=== PATIENT | female | born 1935 | race Two or more races ===

== ENCOUNTER → 2018-10-31 | Outpatient (CLI) | payer MEDICARE, BC ==
[2018-10-31 15:58] LABS: HCT 43.2 % (34.0-46.0); HGB 13.9 gm/dL (11.4-16.0); MCH 29.9 pg (25.0-35.0); MCHC 32.2 g/dL (31.0-37.0); MCV 92.8 fL (80.0-100.0); Mean Platelet Volume 6.9; Platelet Count 332 k/uL (150-450); RBC 4.65 m/uL (3.80-5.40); RDW 14.1 % (11.5-15.5); WBC 5.8 k/uL (3.8-10.6)
[2018-10-31 16:02] LABS: INR 0.9 (<1.2); Partial Thromboplastin Time 23.6 sec (22.0-30.0); Prothrombin Time 9.7 sec (9.0-12.0)
[2018-10-31 16:05] LABS: Albumin 3.9 g/dL (3.5-5.0); Calcium 9.6 mg/dL (8.4-10.2); Potassium 4.1 mmol/L (3.5-5.1); Total Bilirubin 0.7 mg/dL (0.2-1.3); Total Protein 6.9 g/dL (6.3-8.2)
[2018-10-31 16:07] LABS: Appearance,Urine Cloudy (Clear); Bacteria,Urine Many /hpf; Bilirubin,Urine Negative (Negative); Blood,Urine Negative (Negative); Color,Urine Yellow; Glucose,Urine (UA) Negative (Negative); Ketones,Urine Negative (Negative); Leukocyte Esterase,Urine Large (Negative); Mucus,Urine Rare /hpf; Nitrite,Urine Positive (Negative); PH, Urine 5.5 (5.0-8.0); Protein,Urine Negative (Negative); RBC,Urine 3 /hpf (0-5); Squamous Epithelial Cell,Urine 1 /hpf (0-4); Urobilinogen,Urine <2.0 mg/dL (<2.0); WBC,Urine 85 /hpf (0-5)
== END | disposition home or self-care (01) ==
LOC: LABPAT 14:01
PROVIDERS: ATTEND Orthopaedic Surgery
DX: Z01.812 Encounter for preprocedural laboratory examination (principal); Z79.01 Long term (current) use of anticoagulants
CPT/HCPCS: 80053; 81001; 85027; 85610; 85730; 87070

== ENCOUNTER 2018-11-06 05:37 | Inpatient (IN) | payer MEDICARE, BC ==
[2018-10-31 10:26] VITALS: BMI 27.0
[~2018-11-06 05:37] MED LIST: ACETAMINOPHEN TAB 500 MG TAB PO ONE; MELOXICAM 7.5 MG TAB PO ONE; TRANEXAMIC ACID 1,000 MG in SODIUM CHLORIDE 0.9% 100 ML IVPB ONE
[2018-11-06] MEDS ORDERED: LIDOCAINE 1% 20 ML VIAL (10MG/ML) FOR IV START INTRADERMA PRN (05:40)
[2018-11-06] MEDS ORDERED: HYDROmorphone 0.5 MG/0.5 ML SYRINGE IVP PRN ×4 (05:40→06:52)
[2018-11-06] MEDS ORDERED: ONDANSETRON 4 MG/2 ML VIAL IVP ONE (05:40)
[2018-11-06] MEDS ORDERED: ROPIVACAINE 246.25 MG, EPINEPHrine 0.5 MG, KETOROLAC 30 MG, cloNIDine HCL/PF 80 MCG, WA... MISCELLANE ONE ×5 (06:01)
[2018-11-06] MEDS ORDERED: DEXAMETHASONE SOD PHOSPHATE 10 MG/ML 1 ML VIAL IV ONE (06:30)
[2018-11-06] MEDS: LACTATED RINGERS 1,000 ML IV SCH (06:30)
[2018-11-06] MEDS ORDERED: HYDROcodone/APAP 5-325MG 1 EACH TAB PO PRN ×2 (06:52)
[2018-11-06] MEDS ORDERED: NALOXONE 0.4 MG/ML 1 ML VIAL IV PRN (06:52)
[2018-11-06] MEDS ORDERED: hydrOXYzine PAMOATE 25 MG CAP PO PRN (06:52)
[2018-11-06] MEDS ORDERED: DIAZEPAM 5 MG TAB PO PRN (06:52)
[2018-11-06] MEDS ORDERED: ONDANSETRON 4 MG/2 ML VIAL IVP PRN (06:52)
[2018-11-06] MEDS ORDERED: MAGNESIUM HYDROXIDE 2,400 MG/10 ML CUP PO PRN (06:52)
[2018-11-06] MEDS ORDERED: SODIUM CHLORIDE 0.9% 100 ML BAG ONE (06:54)
[2018-11-06] MEDS ORDERED: SODIUM CHLORIDE 0.9% IRRIG 1,000 ML BTL IRRIGATION ONE (06:54)
[2018-11-06] MEDS ORDERED: TRANEXAMIC ACID 1,000 MG/10 ML VIAL ONE (06:54)
[2018-11-06] MEDS ORDERED: diphenhydrAMINE 50 MG/ML 1 ML VIAL ONE (06:54)
[2018-11-06] MEDS ORDERED: HEPARIN SODIUM,PORCINE 10,000 UNIT/ML 1 ML VIAL ONE (06:54)
[2018-11-06] MEDS ORDERED: MIDAZOLAM 2 MG/2 ML VIAL ONE (06:54)
[2018-11-06] MEDS ORDERED: ceFAZolin 3,000 MG in SODIUM CHLORIDE 0.9% IRRIGATIO 3,000 ML IRRIGATION ONE (06:59)
--- NOTE | 2018-11-06 08:33 | P.OP ---
Date of Procedure: 11/06/18 Preoperative Diagnosis: Severe osteoarthritis right hip Postoperative Diagnosis: Severe osteoarthritis right hip Procedure(s) Performed: Right total hip arthroplasty with a direct anterior approach Implants: Palmer and nephew Polarstem size 2 standard Palmer & Nephew R3, 3 hole acetabular shell, 50 mm Palmer & Nephew reflection 6.5 mm cancellus screw, 20 mm 2 Palmer & Nephew R3, XLPE 20 acetabular liner Palmer & Nephew Oxinium femoral head 32 m, +0 All components were press-fit. The articulation is Oxinium on polyethylene. Anesthesia: spinal Surgeon: Prasanth Juarez Sea Kayaking Guide #1: Idalia Courtney Estimated Blood Loss (ml): 200 (68 mL returned with Cell Saver) Pathology: other (Femoral head) Condition: stable Disposition: PACU Indications for Procedure: After failure of conservative treatment we discussed the surgical and nonsurgical treatment options at length. Patient wishes to proceed with a total hip arthroplasty with a direct anterior approach. Complications specific to this procedure were discussed at length, including but not limited to infection, leg length discrepancy, dislocation, and nerve injury. Patient is aware of all these complications and informed consent was obtained Operative Findings: The operative findings are consistent with severe osteoarthritis of the right hip Description of Procedure: Patient was seen and evaluated in the preoperative area, consent was reviewed, and the surgical site was marked with a skin marker. Patient was then brought to the operating room and given prophylactic antibiotics intravenously. 1 g of Tranexamic acid was also given. A spinal anesthetic was administered by the anesthesia department. The patient was then placed on the Sarah Ann table with the bony prominences well-padded. The hip area was then prepped and draped in usual sterile fashion. A universal timeout was then performed, which confirmed the patient's name, surgical site, ALLERGIES, and procedure being performed. Next the incision site was located at 1 cm distal and 1 cm lateral to the anterior superior iliac spine. The skin and subcutaneous tissues were sharply incised. Incision was carefully dissected down to the fascia overlying the tensor fascia brooklyn muscle. This fascia was then incised in line with the incision. Next, using blunt finger dissection, the tensor fascia bro[place] muscle was dissected off its investing fascia. The muscle was then carefully retracted laterally with a cobra retractor over the lateral neck of the femur. Next, the circumflex vessels were identified and cauterized using the AquaMantis device. The anterior hip capsule was then exposed. The capsule was then opened and an inverted T fashion. Cobra retractors were then placed intracapsularly. The proximal femur was then visualized. The femoral neck was then osteotomized appropriate level above the lesser trochanter. Small amount of traction was placed with the Sarah Ann table. A small wedge of bone was then removed from the remaining femoral head. Next, using a corkscrew femoral head was easily removed from the acetabulum. On gross visual inspection, the femoral head had complete loss of articular cartilage in mu ltiple periarticular osteophytes. Attention was then turned to the acetabulum. the acetabulum was exposed and any remaining labrum was excised. Sequential reaming of the acetabulum was performed using fluoroscopic guidance. When the appropriate size was reached, a trial was then placed. The position and fit of the trial was checked with fluoroscopy. The trial was then removed. Then, using fluoroscopic guidance, the final implant was impacted at 20 of anteversion and 40 of abduction, and fully seated in the acetabulum. 2 screws were then placed in the acetabulum. Again fluoroscopy was used to check position of the screws. Next, the liner was then impacted, with a 20 elevated liner located in the anterior superior quadrant. Component locking was confirmed. Attention was then directed to the femur. With the aid of the Sarah Ann table, the femur was externally rotated to approximately 130, extended, and abducted under the opposite leg. A side hook was then placed under the proximal femur, and the side hook elevator was used to elevate the proximal femur. Retractors were then placed. A capsular release was performed, as well as a release of the conjoined tendon, which afforded excellent visualization of the proximal femur. Next, a box osteotome was used to lateralize the proximal femur. A retail sales merchandiser development was then used to locate the femoral canal. Sequential broaching was then performed with appropriate size which afforded excellent fixation in the proximal femur. A trial was then placed with appropriate head and neck, and the hip was gently reduced with the aid of the Sarah Ann table. Fluoroscopy was then used to check position of the components, as well as to ensure equal leg lengths. The hip was then gently dislocated and the trials were then removed. Final implants were then impacted and the hip was again reduced. Final fluoroscopic x-rays confirmed that the components were in anatomic position, as well as equal leg lengths. The hip was also taken through range of motion, and found to be stable. The hip was then copiously irrigated with antibiotic solution with pulsatile lavage. The hip was then irrigated with Irrisept solution. The soft tissues were then injected with a ropivacaine solution, which consisted of 246.25 mg of ropivacaine, 0.5 mg of epinephrine, 30 mg of Toradol, 80 g of clonidine, and 48.45 mL of sterile water, for a total of 100 mL of fluid injected. A second dose of 1 g of Tranexamic acid was also given. the fascia was then closed with 2-0 strata fix suture. The subcutaneous tissue was closed with 3-0 Vicryl. The subcuticular tissue was closed with 3-0 strata fix suture. The skin was then closed with Dermabond glue and a sterile silver dressing. The patient was then transferred to the recovery room in stable co ndition. The behavioral health assistant SEEMA Nguyen was required due to the complexity of surgery, and the need for skilled cashier assistant for positioning, draping, exposure, retraction, and closure of the wound.
--- NOTE | 2018-11-06 08:39 | XR ---
EXAMINATION TYPE: XR Hip Limited RT, FL guidance operating room DATE OF EXAM: 11/06/2018 CLINICAL HISTORY: Right hip arthroplasty. Fluoroscopic documentation. TECHNIQUE: Fluoroscopy. COMPARISON: None. FINDINGS: Fluoroscopic guidance was provided during procedure performed by Dr. Juarez. A total of 55 seconds of fluoroscopic time was utilized during the procedure and 2 spot images was acquired dur ing a right hip arthroplasty. IMPRESSION: As Above.
--- NOTE | 2018-11-06 08:58 | XR ---
EXAMINATION TYPE: XR Hip Limited RT DATE OF EXAM: 11/06/2018 CLINICAL HISTORY: Right hip pain and osteoarthritis. TECHNIQUE: Single AP portable view of right hip is obtained immediately postoperatively. COMPARISON: None. FINDINGS: Metallic hardware from right hip arthroplasty is seen and appears satisfactory in alignment and position. There is evidence of recent surgery with subcutaneous gas and soft tissue swelling no pauline laterally. IMPRESSION: Metallic hardware from right hip arthroplasty is satisfactory in position.
[2018-11-06] MEDS: SODIUM CHLORIDE 0.9% 1,000 ML IV SCH ×2 (16:30→22:24)
[2018-11-06] MEDS ORDERED: ACETAMINOPHEN TAB 500 MG TAB PO PRN (16:46)
--- NOTE | 2018-11-06 17:52 | P.CONS ---
History of Present Illness - Reason for Consult Consult date: 11/06/18 Right hip pain Requesting physician: Prasanth Juarez - Chief Complaint hip pain - History of Present Illness Patient is an 83-year-old female past medical history of vertigo, dyslipidemia, Sinusitis, skin cancer, and osteoarthritis who presented for elective right direct anterior total hip arthroplasty. She underwent procedure on 11/06 without any immediate postoperative complications. Patient seen and examined at bedside. She is not having any pain postoperatively. She complains that her leg was numb and she was having difficulty ambulating afterwards. She denies any chest pain, shortness breath, nausea, or vomiting. She reports that she has been struggling with low blood pressures and dizziness recently. She has been seen by both ophthalmology and neurology. She has undergone an MRI as well as imaging of her carotids. She sometimes has dizziness with blurry vision and when she moves her head but no other complaints. She has been struggling with sinusitis most of the summer. She had her eyedrops change with seems to help some, but she still has some sinus congestion. She denies any other complaints currently. Review of Systems Pertinent positives and negatives as discussed in HPI, a complete review of systems was performed and all other systems are negative. Past Medical History Past Medical History: Cancer, GERD/Reflux, Osteoarthritis (OA) Additional Past Medical History / Comment(s): SKIN CANCER , high cholesterol not treated due to statin intolerance, overactive bladder, sinusitis History of Any Multi-Drug Resistant Organisms: None Reported Past Surgical History: Bladder Surgery, Cholecystectomy, Hysterectomy, Joint Replacement Additional Past Surgical History / Comment(s): BLADDER SUSPENSION , 2- LEFT BREAST BIOPSY, COLONOSCOPY, SKIN LESIONS- RIGHT UPPER ARM,UPPER BACK LESION, LEFT TOTAL HIP Past Anesthesia/Blood Transfusion Reactions: Motion Sickness Smoking Status: Former smoker - Past Family History Mother Family Medical History: Cancer Medications and Allergies Home Medications Medication Instructions Recorded Confirmed Type Dorzolamide 2% [Trusopt 2%] 1 drops BOTH EYES BID 10/31/18 11/06/18 History Oxybutynin Chloride [Oxybutynin 10 mg PO DAILY 10/31/18 11/06/18 History Chloride ER] diphenhydrAMINE HCL 25 mg PO HS 10/31/18 11/06/18 History Cetirizine HCl [Zyrtec] 10 mg PO DAILY 11/06/18 11/06/18 History Allergies Allergy/AdvReac Type Severity Reaction Status Date / Time No Known Allergies Allergy Verified 11/06/18 13:12 Physical Exam Osteopathic Statement: *. No significant issues noted on an osteopathic structural exam other than those noted in the History and Physical/Consult. Vitals: Vital Signs Temp Pulse Pulse Pulse Resp BP BP 11/06/18 16:00 71 16 11/06/18 13:06 98.3 F 71 16 11/06/18 12:15 73 18 112/54 11/06/18 11:45 71 16 110/55 11/06/18 11:15 64 16 100/53 11/06/18 10:45 65 16 105/56 11/06/18 10:15 63 16 110/58 11/06/18 10:00 64 16 115/54 11/06/18 09:45 63 16 119/67 11/06/18 09:30 66 16 119/62 11/06/18 09:15 66 16 127/56 11/06/18 09:00 62 16 114/66 11/06/18 08:45 64 16 101/62 11/06/18 08:36 97.7 F 68 12 117/46 11/06/18 06:30 97.2 F L 73 16 126/60 BP Pulse Ox 11/06/18 16:00 11/06/18 13:06 99/61 99 11/06/18 12:15 98 11/06/18 11:45 98 11/06/18 11:15 99 11/06/18 10:45 97 11/06/18 10:15 97 11/06/18 10:00 98 11/06/18 09:45 98 11/06/18 09:30 100 11/06/18 09:15 100 11/06/18 09:00 100 11/06/18 08:45 100 11/06/18 08:36 99 11/06/18 06:30 100 Intake and Output 11/06/18 11/06/18 11/06/18 06:59 14:59 22:59 Intake Total 551 550 Output Total 200 Balance 551 350 Intake: IV 551 550 Output: Estimated Blood Loss 200 Other: Voiding Method Bedside Commode Weight 59.874 kg General: non toxic, no distress, appears younger than stated age, normal weight Derm: no unusual rashes/lesions no unusual ecchymoses, warm, dry Head: atraumatic, normocephalic, symmetric Eyes: EOMI, no lid lag, anicteric sclera, pupils equal round reactive to light ENT: Nose and ears atraumatic, no thrush, no pharyngeal erythema Neck: No thyromegaly, no cervical lymphadenopathy, trachea midline, supple Mouth: no lip lesion, mucus membranes moist Cardiovascular: S1S2 reg, no murmur, positive posterior tibial pulse bilateral, no edema, capillary refill less than 2 seconds Lungs: CTA bilateral, no rhonchi, no rales , no accessory muscle use Abdominal: soft, nontender to palpation, no guarding, no appreciable organomegaly, normal bowel sounds Ext: no gross muscle atrophy, muscle strength 5 out of 5 in upper extremities grossly, no contractures, Neuro: CN II-XI grossly intact, light touch intact all 4 extremities, finger to nose within normal limits, Psych: Alert, oriented, appropriate affect Assessment and Plan Assessment: Patient is an 83-year-old female status post a right direct anterior hip arthroplasty Postoperative pain -Patient does not want to take any narcotic medication secondary to her history of being off balance. We discussed that I will add Tylenol thousand milligrams every 6 hours as needed for pain. If her pain is increased and encouraged her to take the narcotic medications and call the nurse when she gets up so that she does not fall. Patient is in agreement. -PT/OT -DVT prophylaxis per orthopedic surgery Sinusitis -Continue Zyrtec Insomnia -Continue Benadryl Overactive bladder -Resume oxybutynin DVT prophylaxis: ASA Discussed with: Patient, nursing Anticipated discharge: 1-[address]: home A total of 45 minutes was spent on the care of this complex patient more than 50% of the time was spent in counseling and care coordination. Thank you for allowing us to participate in the care of this patient. Do not hesitate to contact us with questions. Someone can be reached from the [facility] hospitalist group at all hours of the day at [phone].
[2018-11-06] MEDS ORDERED: SENNOSIDES-DOCUSATE SODIUM 1 EACH TAB PO SCH (21:00)
[2018-11-06] MEDS ORDERED: diphenhydrAMINE 25 MG CAP PO SCH (21:00)
[2018-11-06] MEDS: ASPIRIN 325 MG TAB PO SCH (21:23)
[2018-11-06] MEDS: DORZOLAMIDE HCL 2% DROPS 10 ML BTL BOTH EYES SCH (21:24)
[2018-11-07] MEDS: LACTATED RINGERS 1,000 ML IV SCH (05:00)
[2018-11-07 07:03] LABS: Basophils # (A) 0.1 k/uL (0-0.2); Basophils % (A) 1 %; Eosinophils # (A) 0.1 k/uL (0-0.7); Eosinophils % (A) 1 %; HCT 32.5 % (34.0-46.0); Lymphocytes # (A) 1.5 k/uL (1.0-4.8); Lymphocytes % (A) 17 %; MCH 30.9 pg (25.0-35.0); MCHC 33.2 g/dL (31.0-37.0); Monocytes # (A) 0.7 k/uL (0-1.0); Monocytes % (A) 8 %; Neutrophils # (A) 6.5 k/uL (1.3-7.7); Neutrophils % (A) 72 %; Platelet Count 247 k/uL (150-450); RBC 3.49 m/uL (3.80-5.40); RDW 14.5 % (11.5-15.5); WBC 8.9 k/uL (3.8-10.6)
[2018-11-07] MEDS: ASPIRIN 325 MG TAB PO SCH (07:25)
[2018-11-07] MEDS: DORZOLAMIDE HCL 2% DROPS 10 ML BTL BOTH EYES SCH (07:27)
[2018-11-07 07:42] LABS: HGB 10.8 gm/dL (11.4-16.0)
[2018-11-07 08:12] VITALS: BP 96/61; PULSE 74; RESP 16; TEMP 98.6
[2018-11-07] MEDS ORDERED: MELOXICAM 7.5 MG TAB PO SCH (09:00)
[2018-11-07] MEDS ORDERED: OXYBUTYNIN 10 MG TAB.ER.24 PO SCH (09:00)
[2018-11-07] MEDS ORDERED: LORATADINE 10 MG TAB PO SCH (09:00)
--- NOTE | 2018-11-07 09:25 | P.DS ---
Providers Date of admission: 11/06/18 05:37 Expected date of discharge: 11/07/18 Attending physician: Prasanth Juarez Consults: 11/06/18 06:52 Consult Physician Routine Consulting Provider: Erma Santana Consult Reason/Comments: medical management Do you want consulting provider notified?: Yes Primary care physician: Errol Reinoso - Discharge Diagnosis(es) (1) Osteoarthritis of right hip Current Visit: Yes Status: Acute (2) S/P total hip arthroplasty Current Visit: Yes Status: Acute Hospital Course: This is a 83-year-old female with known history of degenerative arthritis of the right hip. The patient presents for evaluation. After discussion and consideration patient elects to proceed with total hip arthroplasty. The patient is seen preoperatively by Dr. Juarez and medically cleared for surgery by their primary care physician. Patient is admitted to [facility] on 11/06/2018 for total hip arthroplasty. The procedures performed without complication or sequelae. The p atient is doing well postoperatively. Labs and vital signs are stable on day of discharge. On day of discharge patient's hip incision is healing well. There is minimal erythema. There is no drainage noted at this time. There is minimal soft tissue swelling to the hip and thigh. Patient has full foot and ankle motion without difficulty or pain. Calf is soft and nontender to palpation. Neuro vascular status to the right lower extremity is intact. Patient is discharged home in good condition. Opioid start talking form is reviewed and signed at patient bedside. Please see med rec for accurate list of home medications. Plan - Discharge Summary Discharge Rx Participant: No New Discharge Prescriptions: New Aspirin 325 mg PO BID #60 tab HYDROcodone/APAP 5-325MG [[place] 5-325] 1 - 2 tab PO Q6HR PRN #45 tab PRN Reason: Pain Sennosides [Senokot] 1 tab PO BID #60 tablet No Action Dorzolamide 2% [Trusopt 2%] 1 drops BOTH EYES BID Oxybutynin Chloride [Oxybutynin Chloride ER] 10 mg PO DAILY diphenhydrAMINE HCL 25 mg PO HS Cetirizine HCl [Zyrtec] 10 mg PO DAILY Discharge Medication List Dorzolamide 2% [Trusopt 2%] 1 drops BOTH EYES BID 10/31/18 [History] Oxybutynin Chloride [Oxybutynin Chloride ER] 10 mg PO DAILY 10/31/18 [History] diphenhydrAMINE HCL 25 mg PO HS 10/31/18 [History] Cetirizine HCl [Zyrtec] 10 mg PO DAILY 11/06/18 [History] Aspirin 325 mg PO BID #60 tab 11/07/18 [Rx] HYDROcodone/APAP 5-325MG [[place] 5-325] 1 - 2 tab PO Q6HR PRN #45 tab 11/07/18 [Rx] Sennosides [Senokot] 1 tab PO BID #60 tablet 11/07/18 [Rx] Follow up Appointment(s)/Referral(s): Errol Reinoso DO [Primary Care Provider] - 1 Week Prasanth Juarez DO [Doctor of Osteopathic Medicine] - 11/19/18 1:20 pm Activity/Diet/Wound Care/Special Instructions: Weightbearing as tolerated with walker. Leave dressing intact. Dressing may be removed by home care nurse or by patient in 10 days. May shower with dressing on. Recommend use of compression stockings daily for at least 2 weeks during the day to help prevent swelling and blood clots. May remove at night before sleeping. Please follow-up with [facility] in 2 weeks and call with any questions or concerns, . Discharge Disposition: HOME WITH HOME HEALTH SERVICES
--- NOTE | 2018-11-07 16:30 | P.PN ---
Subjective Progress Note Date: 11/07/18 Principal diagnosis: hip pain Patient is an 83-year-old female past medical history of vertigo, dyslipidemia, Sinusitis, skin cancer, and osteoarthritis who presented for elective right direct anterior total hip arthroplasty. She underwent procedure on 11/06 without any immediate postoperative complications. Seen and examined at bedside. No chest pain, shortness breath, nausea, or vomiting. Has her chronic dizziness which is unchanged. We had a long discussion she does not want to take PPI despite needing to take aspirin twice daily for DVT prophylaxis. We discussed the importance of not stopping her aspirin until it is okay to do so with orthopedics, she is in agreement and will take [id number] Zantac or Prilosec as needed for heartburn. Objective - Vital Signs Vital signs: Vital Signs Temp 98.6 F 11/07/18 07:00 Pulse 74 11/07/18 08:00 Resp 16 11/07/18 08:00 BP 96/61 11/07/18 07:00 Pulse Ox 98 11/07/18 07:00 Intake & Output 11/06/18 11/07/18 11/07/18 18:59 06:59 18:59 Intake Total 550 280 Output Total 200 Balance 350 280 Intake: IV 550 Intake, IV Titration 130 Amount Sodium Chloride 0.9% 1, 130 000 ml @ 65 mls/hr IV . [id number] [facility] Rx#:[id number] Oral 150 Output: Estimated Blood Loss 200 Other: Voiding Method Bedside Commode Bedside Commode Bedside Commode # Voids 1 - Exam General: non toxic, no distress, appears at stated age Derm: warm, dry Head: atraumatic, normocephalic, symmetric Eyes: EOMI, no lid lag, anicteric sclera Mouth: no lip lesion, mucus membranes moist Cardiovascular: S1S2 reg, no murmur, positive posterior tibial pulse bilateral, Lungs: CTA bilateral, no rhonchi, no rales , no accessory muscle use Abdominal: soft, nontender to palpation, no guarding, no appreciable organomegaly - Labs CBC & Chem 7: 11/07/18 05:55 Labs: Abnormal Lab Results - Last 24 Hours (Table) 11/07/18 Range/Units 05:55 RBC 3.49 L (3.80-5.40) m/uL Hgb 10.8 L D (11.4-16.0) gm/dL Hct 32.5 L (34.0-46.0) % Assessment and Plan Assessment: Patient is an 83-year-old female status post a right direct anterior hip arthroplasty Postoperative pain -Tylenol -PT/OT -DVT prophylaxis per orthopedic surgery Sinusitis -Continue Zyrtec Insomnia -Continue Benadryl Overactive bladder -Resume oxybutynin Medically stable for discharge. DVT prophylaxis: ASA Discussed with: Patient, nursing Anticipated discharge: 1-[address]: home A total of 25minutes was spent on the care of this complex patient more than 50% of the time was spent in counseling and care coordination. Thank you for allowing us to participate in the care of this patient. Do not hesitate to contact us with questions. Someone can be reached from the [facility] hospitalist group at all hours of the day at [phone].
== END 2018-11-07 13:57 | disposition home health service (06) | DRG 470 ==
LOC: 2ORMAIN 05:37 → 4SSUR 12:24
PROVIDERS: ADMIT Orthopaedic Surgery; ATTEND Orthopaedic Surgery
PROC: 30233N0 Transfusion of Autologous Red Blood Cells into Peripheral Vein, Percutaneous Approach (ICD-10-PCS; 2018-11-06)
PROC: 0SR906A Replacement of Right Hip Joint with Oxidized Zirconium on Polyethylene Synthetic Substitute, Uncemented, Open Approach (ICD-10-PCS; principal; 2018-11-06 07:00)
DX: M16.11 Unilateral primary osteoarthritis, right hip (principal); E78.00 Pure hypercholesterolemia, unspecified; E78.5 Hyperlipidemia, unspecified; G47.00 Insomnia, unspecified; K21.9 Gastro-esophageal reflux disease without esophagitis; N32.81 Overactive bladder; H81.10 Benign paroxysmal vertigo, unspecified ear; M79.7 Fibromyalgia; K57.30 Diverticulosis of large intestine without perforation or abscess without bleeding; M51.17 Intervertebral disc disorders with radiculopathy, lumbosacral region; E07.9 Disorder of thyroid, unspecified; R26.9 Unspecified abnormalities of gait and mobility; J32.9 Chronic sinusitis, unspecified; Z85.828 Personal history of other malignant neoplasm of skin; Z87.891 Personal history of nicotine dependence; Z90.710 Acquired absence of both cervix and uterus; Z90.49 Acquired absence of other specified parts of digestive tract; Z86.010 Personal history of colon polyps; Z96.642 Presence of left artificial hip joint; Z87.440 Personal history of urinary (tract) infections; Z79.899 Other long term (current) drug therapy; Z82.49 Family history of ischemic heart disease and other diseases of the circulatory system; Z83.3 Family history of diabetes mellitus
CPT/HCPCS: 73501; 85025; 86850; 86891; 86900; 86901; 88300

== ENCOUNTER 2022-10-24 11:35 | Inpatient (IN) | payer MEDICARE, BC ==
--- NOTE | 2022-10-24 12:35 | ED ---
General Adult HPI - General Chief complaint: Dizziness Stated complaint: dizziness Time Seen by Provider: 10/24/22 12:05 Source: patient, family, EMS, RN notes reviewed Mode of arrival: EMS Limitations: no limitations - History of Present Illness Initial comments: Patient is a pleasant 87-year-old female presenting to the emergency department with speech problems. Onset of symptoms was over an hour prior to arrival and have resolved. Patient has had 2 similar episodes since June. Patient did have some associated lightheadedness. Patient has had lightheadedness since 2014 and that has been somewhat recurrent. Patient has been evaluated for ligh theadedness multiple times including MRI and CTA, last 2 years ago at [facility]. Patient states she feels a little bit off balance with the speech problems. No new weakness. Patient is chronic leg weakness and does use a walker. Patient denies any headache or confusion. - Related Data Home Medications Medication Instructions Recorded Confirmed Dorzolamide 2% [Trusopt 2%] 1 drops BOTH EYES BID 10/31/18 11/06/18 Oxybutynin Chloride [oxyBUTYnin 10 mg PO DAILY 10/31/18 11/06/18 chloride ER] diphenhydrAMINE HCL 25 mg PO HS 10/31/18 11/06/18 Cetirizine HCl [Zyrtec] 10 mg PO DAILY 11/06/18 11/06/18 Previous Rx's Medication Instructions Recorded Aspirin 325 mg PO BID #60 tab 11/07/18 HYDROcodone/APAP 5-325MG [[place] 1 - 2 tab PO Q6HR PRN #45 tab 11/07/18 5-325] Sennosides [Senokot] 1 tab PO BID #60 tablet 11/07/18 Allergies Allergy/AdvReac Type Severity Reaction Status Date / Time No Known Allergies Allergy Verified 11/06/18 13:12 Review of Systems ROS Statement: Those systems with pertinent positive or pertinent negative responses have been documented in the HPI. ROS Other: All systems not noted in ROS Statement are negative. Constitutional: Denies: fever Eyes: Denies: eye pain ENT: Denies: ear pain Respiratory: Denies: cough Cardiovascular: Denies: chest pain Endocrine: Denies: fatigue Gastrointestinal: Denies: abdominal pain Genitourinary: Denies: dysuria Skin: Denies: rash Neurological: Reports: as per HPI. Denies: headache Past Medical History Past Medical History: Cancer, GERD/Reflux, Osteoarthritis (OA) Additional Past Medical History / Comment(s): SKIN CANCER , high cholesterol not treated due to statin intolerance, overactive bladder, sinusitis History of Any Multi-Drug Resistant Organisms: None Reported Past Surgical History: Bladder Surgery, Cholecystectomy, Hysterectomy, Joint Replacement Additional Past Surgical History / Comment(s): BLADDER SUSPENSION , 2- LEFT BREAST BIOPSY, COLONOSCOPY, SKIN LESIONS- RIGHT UPPER ARM,UPPER BACK LESION, LEFT TOTAL HIP Past Anesthesia/Blood Transfusion Reactions: Motion Sickness Past Psychological History: No Psychological Hx Reported Smoking Status: Former smoker Past Alcohol Use History: None Reported Past Drug Use History: None Reported - Past Family History Mother Family Medical History: Cancer General Exam Limitations: no limitations General appearance: alert, in no apparent distress Head exam: Present: normocephalic Eye exam: Present: normal appearance, PERRL, EOMI ENT exam: Present: normal oropharynx Neck exam: Present: normal inspection. Absent: tenderness, meningismus Respiratory exam: Present: normal lung sounds bilaterally Cardiovascular Exam: Present: regular rate, normal rhythm, normal heart sounds GI/Abdominal exam: Present: soft. Absent: tenderness Extremities exam: Present: normal inspection Neurological exam: Present: alert, oriented X3, CN II-XII intact Expanded Neurological exam: Present: protecting the airway Patient oriented to: Present: person, place, time Speech: Present: fluid speech Cranial nerves: EOM's Intact: Normal, Facial Sensation: Normal Sensory exam: Upper Extremity Light Touch: Normal, Lower Extremity Light Touch: Normal Motor strength exam: RUE: 5, LUE: 5, RLE: 3, LLE: 3 Eye Response: (4) open spontaneously Motor Response: (6) obeys commands Verbal Response: (5) oriented Psychiatric exam: Present: normal affect, normal mood Skin exam: Present: normal color Course Vital Signs 10/24/22 10/24/22 11:40 13:28 Temperature 97.7 F Pulse Rate 59 L Respiratory 18 18 Rate Blood Pressure 140/63 129/66 O2 Sat by Pulse 97 97 Oximetry EKG Findings - EKG Results: EKG: interpreted by ERMD (Left axis. Low QRS voltage.), sinus rhythm, normal ST/T Medical Decision Making - Medical Decision Making Was pt. sent in by a medical professional or institution (Dr., PA, SOLAR APPLICATIONS DEVELOPMENT ENGINEER, urgent care, hospital, or residential...) When possible be specific @ -Patient was sent from nursing facility Did you speak to anyone other than the patient for history (EMS, parent, family, police, friend...)? What history was obtained from this source @ -Daughter is present and helps provide majority of history is patient is a poor historian. Did you review nursing and triage notes (agree or disagree)? Why? @ -I reviewed and agree with nursing and triage notes Were old charts reviewed (outside hosp., previous admission, EMS record, old EKG, old radiological studies, urgent care reports/EKG's, residential records)? Report findings @ -No old charts were reviewed Differential Diagnosis (chest pain, altered mental status, abdominal pain women, abdominal pain men, vaginal bleeding, weakness, fever, dyspnea, syncope, headache, dizziness, GI bleed, back pain, seizure, CVA, palpatations, mental health, musculoskeletal)? Differential Dizziness: Benign paroxysmal positional Vertigo, Menieres disease, otitis media, acoustic neuroma, vertebrobasilar insufficiency, cerebellar stroke, encephalitis, hypovolemic, arrhythmia, coronary artery syndrome, anemia, this is not meant to be an all-inclusive list EKG interpreted by me (3pts min.). @ -As above X-rays interpreted by me (1pt min.). @ -Chest x-ray shows no acute process CT interpreted by me (1pt min.). @ -CT brain does not show large hemorrhage or mass. Chronic changes. U/S interpreted by me (1pt. min.). @ -None done What testing was considered but not performed or refused? (CT, X-rays, U/S, labs)? Why? @ -None What meds were considered but not given or refused? Why? @ -None Did you discuss the management of the patient with other professionals (emre henson i.e. SEEMA Strange, SOLAR APPLICATIONS DEVELOPMENT ENGINEER, lab, RT, psych nurse, social sciences professor, apple sorter, teacher, workers' compensation hearings officer, director case management)? Give summary @ -Case was discussed with Dr. Haynes with [facility] hospitalist will admit covering hospital call Was smoking cessation discussed for >3mins.? @ -No Was critical care preformed (if so, how long)? @ -No Were there social determinants of health that impacted care today? How? (Homelessness, low income, unemployed, alcoholism, drug addiction, transportation, low edu. Level, literacy, decrease access to med. care, fci, rehab)? @ -No Was there de-escalation of care discussed even if they declined (Discuss DNR or withdrawal of care, Hospice)? DNR status @ -No What co-morbidities impacted this encounter? (DM, HTN, Smoking, COPD, CAD, Cancer, CVA, ARF, Chemo, Hep., AIDS, mental health diagnosis, sleep apnea, morbid obesity)? @ -None Was patient admitted / discharged? Hospital course, mention meds given and route, prescriptions, significant lab abnormalities, going to OR and other pertinent info. @ -Patient reevaluated and symptom free at this time. There is concern for TIA. Patient will be admitted with neurology consult. Admission orders written. Undiagnosed new problem with uncertain prognosis? @ -No Drug Therapy requiring intensive monitoring for toxicity (Heparin, Nitro, Insulin, Cardizem)? @ -No Were any procedures done? @ -No Diagnosis/symptom? @ -TIA Acute, or Chronic, or Acute on Chronic? @ -Acute Uncomplicated (without systemic symptoms) or Complicated (systemic symptoms)? @ -default Side effects of treatment? @ -No Exacerbation, Progression, or Severe Exacerbation? @ -No Poses a threat to life or bodily function? How? (Chest pain, USA, CA, pneumonia, PE, COPD, DKA, ARF, appy, cholecystitis, CVA, Diverticulitis, Homicidal, Suicidal, threat to staff... and all critical care pts) @ -No - Lab Data Result diagrams: 10/24/22 12:36 10/24/22 12:36 Lab Results 10/24/22 10/24/22 10/24/22 Range/Units 12:36 12:36 12:36 WBC 6.0 (3.8-10.6) k/uL RBC 4.47 (3.80-5.40) m/uL Hgb 13.8 (11.4-16.0) gm/dL Hct 42.3 (34.0-46.0) % MCV 94.8 (80.0-100.0) fL MCH 31.0 (25.0-35.0) pg MCHC 32.7 (31.0-37.0) g/dL RDW 13.9 (11.5-15.5) % Plt Count 450 (150-450) k/uL MPV 8.1 Neutrophils % 48 % Lymphocytes % 35 % Monocytes % 13 % Eosinophils % 2 % Basophils % 0 % Neutrophils # 2.9 (1.3-7.7) k/uL Lymphocytes # 2.1 (1.0-4.8) k/uL Monocytes # 0.8 (0-1.0) k/uL Eosinophils # 0.1 (0-0.7) k/uL Basophils # 0.0 (0-0.2) k/uL PT 9.7 (9.0-12.0) sec INR 0.9 (<1.2) APTT 21.5 L (22.0-30.0) sec Sodium 136 L (137-145) mmol/L Potassium 4.9 (3.5-5.1) mmol/L Chloride 105 (98-107) mmol/L Carbon Dioxide 25 (22-30) mmol/L Anion Gap 6 mmol/L BUN 25 H (7-17) mg/dL Creatinine 0.76 (0.52-1.04) mg/dL Est GFR (CKD-EPI)AfAm 81 (>60 ml/min/1.73 sqM) Est GFR (CKD-EPI)NonAf 70 (>60 ml/min/1.73 sqM) Glucose 79 (74-99) mg/dL Calcium 8.9 (8.4-10.2) mg/dL Total Bilirubin 1.2 (0.2-1.3) mg/dL AST 31 (14-36) U/L ALT 18 (4-34) U/L Alkaline Phosphatase 169 H (38-126) U/L Creatine Kinase 36 (30-135) U/L Total Protein 6.8 (6.3-8.2) g/dL Albumin 3.5 (3.5-5.0) g/dL Disposition Clinical Impression: TIA (transient ischemic attack) Disposition: ADMITTED IP TO THIS HOSP Is patient prescribed a controlled substance at d/c from ED?: No Referrals: Gwendolyn Byrd [Primary Care Provider] - 1-2 days Time of Disposition: 14:03
[2022-10-24 12:50] LABS: Basophils % (A) 0 %; Eosinophils # (A) 0.1 k/uL (0-0.7); Eosinophils % (A) 2 %; HCT 42.3 % (34.0-46.0); HGB 13.8 gm/dL (11.4-16.0); Lymphocytes # (A) 2.1 k/uL (1.0-4.8); Lymphocytes % (A) 35 %; MCHC 32.7 g/dL (31.0-37.0); MCV 94.8 fL (80.0-100.0); Mean Platelet Volume 8.1; Monocytes # (A) 0.8 k/uL (0-1.0); Monocytes % (A) 13 %; Neutrophils # (A) 2.9 k/uL (1.3-7.7); Neutrophils % (A) 48 %; Platelet Count 450 k/uL (150-450); RBC 4.47 m/uL (3.80-5.40); RDW 13.9 % (11.5-15.5)
[2022-10-24 13:08] LABS: ALT 18 U/L (4-34); African American GFR (CKD) 81 (>60 ml/min/1.73 sqM); Anion Gap 6 mmol/L; Blood Urea Nitrogen 25 mg/dL (7-17); Calcium 8.9 mg/dL (8.4-10.2); Carbon Dioxide 25 mmol/L (22-30); Chloride 105 mmol/L (98-107); Glucose 79 mg/dL (74-99); Non-African American GFR(CKD) 70 (>60 ml/min/1.73 sqM); Sodium 136 mmol/L (137-145); Total Bilirubin 1.2 mg/dL (0.2-1.3)
--- NOTE | 2022-10-24 13:08 | CT ---
EXAMINATION TYPE: CT brain wo con CT DLP: 1024.4 mGycm, Automated exposure control for dose reduction was used. DATE OF EXAM: 10/24/2022 1:01 PM COMPARISON: None. CLINICAL INDICATION:Female, 87 years old with history of Neuro deficit, acute, stroke suspected, Neur o deficit, acute, stroke suspected TECHNIQUE: Brain: Axial CT images of the brain were obtained with coronal and sagittal reformats created and rev iewed. Contrast used: None. Oral contrast used: None. FINDINGS: Brain: Extra-axial spaces: No abnormal extra-axial fluid collections. Ventricular system: Dilatation in proportion to cerebral atrophy. Cerebral parenchyma: Cerebral atrophy. No acute intraparenchymal hemorrhage or mass effect. The martinez -white junction is well differentiated. Scattered hypoattenuating areas are seen within the white mat ter. Cerebellum: Unremarkable. Mass effect: No evidence of midline shift. Intracranial vasculature: Atherosclerotic calcifications of the intracranial vessels. Soft tissues: Normal. Calvarium/osseous structures: No depressed skull fracture. Paranasal sinuses and mastoid air cells: Mild scattered paranasal sinus disease. Visualized orbits: Bilateral aphakia IMPRESSION: 1. No acute intracranial process. 2. Nonspecific white matter changes, likely secondary to chronic small vessel ischemic disease.
--- NOTE | 2022-10-24 13:09 | XR ---
EXAMINATION TYPE: XR chest 2V DATE OF EXAM: 10/24/2022 1:04 PM COMPARISON: Chest radiographs from 10/24/2022. TECHNIQUE: XR chest 2V Frontal and lateral views of the chest. CLINICAL INDICATION:Female, 87 years old with history of altered mental status; FINDINGS: Lungs/Pleura: Prominent interstitial lung markings are seen scattered throughout the lungs with jose ening of the diaphragm and increased lucency of the lung apices. No evidence of focal consolidation, pneumothorax or pleural effusion. Pulmonary vascularity: Unremarkable. Heart/mediastinum: Cardiomediastinal silhouette is unremarkable. Musculoskeletal: No acute osseous pathology. Remote right clavicle fracture. Suspected chronic injury to the right proximal humerus. IMPRESSION: 1. No acute cardiopulmonary disease process. 2. COPD changes.
[2022-10-24 13:12] LABS: AST 31 U/L (14-36); Albumin 3.5 g/dL (3.5-5.0); Alkaline Phosphatase 169 U/L (38-126); Creatine Kinase 36 U/L (30-135); Potassium 4.9 mmol/L (3.5-5.1); Total Protein 6.8 g/dL (6.3-8.2)
[2022-10-24 13:15] LABS: INR 0.9 (<1.2); Prothrombin Time 9.7 sec (9.0-12.0)
[2022-10-24 13:35] LABS: Partial Thromboplastin Time 21.5 sec (22.0-30.0)
[2022-10-24] MEDS ORDERED: ASPIRIN 325 MG TAB PO STA (14:03)
[2022-10-24] MEDS: SODIUM CHLORIDE 0.9% 1,000 ML IV SCH ×2 (14:27→23:32)
[2022-10-24] MEDS ORDERED: IBUPROFEN 600 MG TAB PO STA (14:47)
--- NOTE | 2022-10-24 14:57 | P.HPIM ---
History of Present Illness H&P Date: 10/24/22 History of present illness; patient is a 87-year-old lady with past medical hist ory significant for back pain who presented to the ER for episodes of slurred speech. Patient states that she has been dealing with these episodes of slurred speech since June. Patient states this these episodes are intermittent. Patient also complains of episodes of pressure behind her eyes and her head feeling full associated with neck pains. Denies any weakness of any extremity. Denies any facial droop. No complaint of any passing out. Patient has been seeing therapy for her right hip pain. This morning patient had episode of slurred speech that made her concerned and wanted to come to the ER Initial lab work done in the ER showed WBC 6, hemoglobin 13.8 platelet count 450, sodium 136, potassium 4.9, BUN 25, creatinine 0.76 CT brain done showed no acute intracranial process Chest x-ray done in the ER showed no acute cardiopulmonary process She admitted to medicine service REVIEW OF SYSTEMS: CONSTITUTIONAL: No fever, no malaise, no fatigue. HEENT: No recent visual problems or hearing problems. Denied any sore throat. CARDIOVASCULAR: No chest pain, orthopnea, PND, no palpitations, no syncope. PULMONARY: No shortness of breath, no cough, no hemoptysis. GASTROINTESTINAL: No diarrhea, no nausea, no vomiting, no abdominal pain. NEUROLOGICAL: As mentioned in HPI HEMATOLOGICAL: Denies any bleeding or petechiae. GENITOURINARY: Denies any burning micturition, frequency, or urgency. MUSCULOSKELETAL/RHEUMATOLOGICAL: Denies any joint pain, swelling, or any muscle pain. ENDOCRINE: Denies any polyuria or polydipsia. The rest of the 14-point review of systems is negative. PHYSICAL EXAMINATION: GENERAL: The patient is alert and oriented x3, not in any acute distress. Well developed, well nourished. HEENT: Pupils are round and equally reacting to light. EOMI. No scleral icterus. No conjunctival pallor. Normocephalic, atraumatic. No pharyngeal erythema. No th yromegaly. CARDIOVASCULAR: S1 and S2 present. No murmurs, rubs, or gallops. PULMONARY: Chest is clear to auscultation, no wheezing or crackles. ABDOMEN: Soft, nontender, nondistended, normoactive bowel sounds. No palpable organomegaly. MUSCULOSKELETAL: No joint swelling or deformity. EXTREMITIES: No cyanosis, clubbing, or pedal edema. NEUROLOGICAL: Gross neurological examination did not reveal any focal deficits. SKIN: No rashes. Assessment and plan Episodes of slurred speech Dizziness Monitor vital signs Monitor CBC Monitor CMP Continue telemetry monitoring Ordered neurochecks Ordered 2-D echo Ordered ultrasound of carotids Will order EEG Consult neurology Labs and medication were reviewed.. Continue same treatment. Continue with symptomatic treatment. Resume home medication. Monitor labs and vitals. DVT and GI prophylaxis. Further recommendations as per clinical course of the patient Dictation was produced using [employer] dictation software. please excuse any grammatical, word or spelling errors. Past Medical History Past Medical History: Cancer, GERD/Reflux, Osteoarthritis (OA) Additional Past Medical History / Comment(s): SKIN CANCER , high cholesterol not treated due to statin intolerance, overactive bladder, sinusitis History of Any Multi-Drug Resistant Organisms: None Reported Past Surgical History: Bladder Surgery, Cholecystectomy, Hysterectomy, Joint Replacement Additional Past Surgical History / Comment(s): BLADDER SUSPENSION , 2- LEFT BREAST BIOPSY, COLONOSCOPY, SKIN LESIONS- RIGHT UPPER ARM,UPPER BACK LESION, LEFT TOTAL HIP Past Anesthesia/Blood Transfusion Reactions: Motion Sickness Past Psychological History: No Psychological Hx Reported Smoking Status: Former smoker Past Alcohol Use History: None Reported Past Drug Use History: None Reported - Past Family History Mother Family Medical History: Cancer Medications and Allergies Home Medications Medication Instructions Recorded Confirmed Type Dorzolamide 2% [Trusopt 2%] 1 drops BOTH EYES BID 10/31/18 11/06/18 History Oxybutynin Chloride [oxyBUTYnin 10 mg PO DAILY 10/31/18 11/06/18 History chloride ER] diphenhydrAMINE HCL 25 mg PO HS 10/31/18 11/06/18 History Cetirizine HCl [Zyrtec] 10 mg PO DAILY 11/06/18 11/06/18 History Aspirin 325 mg PO BID #60 tab 11/07/18 Rx HYDROcodone/APAP 5-325MG [[place] 1 - 2 tab PO Q6HR PRN #45 tab 11/07/18 Rx 5-325] Sennosides [Senokot] 1 tab PO BID #60 tablet 11/07/18 Rx Allergies Allergy/AdvReac Type Severity Reaction Status Date / Time No Known Allergies Allergy Verified 11/06/18 13:12 Physical Exam Vitals: Vital Signs Temp Pulse Resp BP Pulse Ox 10/24/22 14:30 60 18 147/67 97 10/24/22 13:28 59 L 18 129/66 97 10/24/22 11:40 97.7 F 18 140/63 97 Intake and Output 10/23/22 10/24/22 10/24/22 22:59 06:59 14:59 Other: Weight 128 kg Results CBC & Chem 7: 10/24/22 12:36 10/24/22 12:36 Labs: Abnormal Lab Results - Last 24 Hours (Table) 10/24/22 10/24/22 Range/Units 12:36 12:36 APTT 21.5 L (22.0-30.0) sec Sodium 136 L (137-145) mmol/L BUN 25 H (7-17) mg/dL Alkaline Phosphatase 169 H (38-126) U/L
--- NOTE | 2022-10-24 16:19 | US ---
EXAMINATION TYPE: US carotid duplex BILAT DATE OF EXAM: 10/24/2022 COMPARISON: NONE CLINICAL INDICATION: Female, 87 years old with history of Stenosis; TECHNIQUE: Carotid duplex ultrasound examination. Indirect Doppler criteria was utilized. FINDINGS: EXAM MEASUREMENTS: RIGHT: Peak Systolic Velocity (PSV) cm/sec ----- Right CCA: 63.0 ----- Right ICA: 74.4 ----- Right ECA: 45.0 ICA/CCA ratio: 1.2 RIGHT: End Diastole cm/sec ----- Right CCA: 11.0 ----- Right ICA: 24.9 ----- Right ECA: 0.0 LEFT: Peak Systolic Velocity (PSV) cm/sec ----- Left CCA: 51.0 ----- Left ICA: 75.3 ----- Left ECA: 101.0 ICA/CCA ratio: 1.5 LEFT: End Diastole cm/sec ----- Left CCA: 10.1 ----- Left ICA: 19.7 ----- Left ECA: 0.0 VERTEBRALS (direction of flow): Right Vertebral: Antegrade Left Vertebral: Antegrade Rhythm: Normal No significant stenosis IMPRESSION: No ultrasound evidence for hemodynamically significant stenosis of the visualized bilateral carotid a rterial systems. Criteria for Assigning % of Stenosis / Diameter reduction (Estimation based on the indirect measurements of the internal carotid artery velocities (ICA PSV). 1. Normal (no stenosis)=ICA PSV < 125 cm/s: ratio < 2.0: ICA EDV<40 cm/s. 2. Less than 50% stenosis=ICA PSV < 125 cm/s: ratio < 2.0: ICA EDV<40 cm/s. 3. 50 to 69% stenosis=ICA PSV of 125 to 230 cm/s: ration 2.0 ? 4.0: ICA EDV 40-100 cm/s. 4. Greater than 70% stenosis to near occlusion= ICA PSV > 230 cm/s: ratio > 4.0: ICA EDV > 100 cm/s. 5. Near occlusion= ICA PSV velocities may be low or undetectable: variable ratio and ICA EDV. 6. Total occlusion=unable to detect flow.
--- NOTE | 2022-10-24 16:22 | P.CNNES ---
History of Present Illness Consult date: 10/24/22 Requesting physician: Bakari Ellington Reason for Consult: tia History of Present Illness: This is an 87-year-old woman with chronic history of lower back pain as well as history of slurring the speech who presented emergency department because of worsening of her slurred speech. Patient states that she's been having slurring the speech on and off since June. She states that the been having chronic episodes that when she stands up for prolonged period of time she'll have pain episodes to travel from her feet all the way up neck and she'll feel pain in the head behind her eyes mostly and then the she needs to sit down and then when she sits down the episodes resolve. She denies any loss of conscious, urinary incontinence, bowel incontinence. She states that she saw multiple neurologist as a result of these episodes at different cities and had extensive workup and the workup were negative. It seems that the this morning she had episodes slurring the speech that she felt was worse this why she decided to come to the hospital. Denies of any focal weakness, she is having predominantly right hip pain which is chronic. She denies of any passing out stated that earlier. Denies of any seizure-like activity. Some of the workup during this hospital stay consisted of: CBC with differential is unremarkable. Sodium is 136. Glucose is 79. Calcium, LFT's is within normal limits. CT of the head is reported as no acute intracranial process. Nonspecific white matter changes, likely secondary due to chronic small vessel ischemic disease. Review of Systems Review of system: The 12 point system was reviewed and apparent positive and negative per HPI. Past Medical History Past Medical History: Cancer, GERD/Reflux, Osteoarthritis (OA) Additional Past Medical History / Comment(s): SKIN CANCER , high cholesterol not treated due to statin intolerance, overactive bladder, sinusitis History of Any Multi-Drug Resistant Organisms: None Reported Past Surgical History: Bladder Surgery, Cholecystectomy, Hysterectomy, Joint Replacement Additional Past Surgical History / Comment(s): BLADDER SUSPENSION , 2- LEFT BREAST BIOPSY, COLONOSCOPY, SKIN LESIONS- RIGHT UPPER ARM,UPPER BACK LESION, LEFT TOTAL HIP Past Anesthesia/Blood Transfusion Reactions: Motion Sickness Past Psychological History: No Psychological Hx Reported Smoking Status: Former smoker Past Alcohol Use History: None Reported Past Drug Use History: None Reported - Past Family History Mother Family Medical History: Cancer Medications and Allergies Home Medications Medication Instructions Recorded Confirmed Type Ibuprofen [Motrin] 800 mg PO DAILY 10/24/22 10/24/22 History Allergies Allergy/AdvReac Type Severity Reaction Status Date / Time No Known Allergies Allergy Verified 10/24/22 14:59 Physical Examination - Vital Signs Vital Signs: Vital Signs Temp Pulse Resp BP Pulse Ox 10/24/22 14:30 60 18 147/67 97 10/24/22 13:28 59 L 18 129/66 97 10/24/22 11:40 97.7 F 18 140/63 97 Intake and Output 10/24/22 10/24/22 10/24/22 06:59 14:59 22:59 Other: Weight 128 kg GENERAL: The patient is lying in bed and is not in acute distress. NEUROLOGICAL: Higher mental function: The patient is awake, alert, oriented to self, place and time. Patient is following commands. No aphasia and no neglect. Cranial nerves: The pupils are round, equal and reactive to light. Visual wagoner are full to confrontation throughout. Extraocular movement is intact no nystagmus is noted. Facial sensation is normal to touch throughout. The facial strength is normal throughout. Hearing is moderately decreased bilaterally to hand rub. Tongue is midline and moved [id number] without any difficulty. No dysarthria is noted. Shoulder shrug is normal bilaterally. Motor: The strength is limited in assessment lowers (predominately right because of right hip pain). Uppers are 5/5. Lowers are limited predominately right lower because of hip pain. But is able to lifting the lowers above gravity (better o the left but limited on right because of hip pain). Normall tone and bulk. Cerebellum: Normal finger to nose bilaterally. Sensation: Sensation is normal to touch throughout. Reflexes (right/left): 2+ uppers but limited on lowers because deferred because of pain.. Plantars are downgoing bilaterally. Results - Laboratory Findings CBC and BMP: 10/24/22 12:36 10/24/22 12:36 Abnormal Lab Findings: Abnormal Labs 10/24/22 10/24/22 12:36 12:36 APTT 21.5 L Sodium 136 L BUN 25 H Alkaline Phosphatase 169 H Assessment and Plan Assessment: This is an 87-year-old woman who has been having intermittent slurring the speech since June 2022, chronic low back pain, right hip pain who presents because a worsening of her slurred speech. Upon examining the patient she had no slurred speech but the lowers are limited in the assessment especially right lower because of right hip pain and lower back pain. She states that she's been having pain after prolonged standing up that starts in the feet as since all the way up by her neck and behind the eyes and she'll feel of feels the she slurring states she was seen by different the neurologist and had extensive workup which was negative. Intermittent reported dysarthria that's been recurrent since June 2022 and she states this happens when she stands prolonged period time as a result she has been a sense of her legs up the arms and to the neck and head behind the eyes and then the she would have to last at during these episodes as she feels like she feels off and has slurring of the speech. Episodes resolved. She denies any loss of consciousness. Unknown exact etiology. Unsure if they are truly TIA versus ? Seizure versus other central process Chronic lower back and right hip pain History of altered arthritis Plan: I ordered a routine EEG to rule out any underlying seizure discharges. I recommended MRI of the brain but the patient declined and she stated the she cannot lie still for the MRI of the brain right now and she might consider down the line such as outpatient. Patient states that she had extensive workup as an outpatient and was seen by different neurologists and the unknown exact cause. If EEG is negative consider prolonged EEG as an outpatient to capture these episodes. Carotid duplex is ordered is pending as well as 2-D echo and lipid panel is ordered by the ED team is pending In the ED she was started on aspirin 325mg daily. Continue checks On cardiac monitoring PT OT WATER RESOURCE SPECIALIST are consulted We'll defer the rest of the medical management to primary team Upon discharge recommend the patient follow up with a neurologist within 1-2 weeks Plan discussed with the patient and primary attending Thank you for the consultation Time with Patient: Greater than 30
[2022-10-24] MEDS: diphenhydrAMINE 25 MG CAP PO PRN (22:15)
[2022-10-24] MEDS: DOCUSATE 100 MG CAP PO SCH (22:15)
[2022-10-24] MEDS: IBUPROFEN 600 MG TAB PO PRN (22:15)
[2022-10-25 08:56] LABS: Chol/HDL Ratio 3.77 Ratio; LDL Cholesterol,Calculated 121.1 mg/dL (0.0-131.0)
[2022-10-25] MEDS: DOCUSATE 100 MG CAP PO SCH ×2 (09:12→21:44)
[2022-10-25] MEDS: IBUPROFEN 600 MG TAB PO PRN ×3 (09:12→21:44)
[2022-10-25] MEDS: ASPIRIN 325 MG TAB PO SCH (09:12)
[2022-10-25] MEDS: SODIUM CHLORIDE 0.9% 1,000 ML IV SCH ×2 (09:12→21:45)
--- NOTE | 2022-10-25 14:23 | P.PN ---
Subjective Progress Note Date: 10/25/22 patient is a 87-year-old lady with past medical history significant for back pain who presented to the ER for episodes of slurred speech. Patient states that she has been dealing with these episodes of slurred speech since June. Patient states this these episodes are intermittent. Patient also complains of episodes of pressure behind her eyes and her head feeling full associated with neck pains. Denies any weakness of any extremity. Denies any facial droop. No complaint of any passing out. Patient has been seeing therapy for her right hip pain. This morning patient had episode of slurred speech that made her concerned and wanted to come to the ER Initial lab work done in the ER showed WBC 6, hemoglobin 13.8 platelet count 450, sodium 136, potassium 4.9, BUN 25, creatinine 0.76 CT brain done showed no acute intracranial process Chest x-ray done in the ER showed no acute cardiopulmonary process She admitted to medicine service 10/25. Patient seen and examined. Still having episodes of slurred speech. No other sensory or motor deficit REVIEW OF SYSTEMS: CONSTITUTIONAL: No fever, no malaise,. CARDIOVASCULAR: No chest pain, no palpitations, no syncope. PULMONARY: No shortness of breath, no cough, GASTROINTESTINAL: No diarrhea, no nausea, no vomiting, no abdominal pain. NEUROLOGICAL: No headaches, no weakness, PHYSICAL EXAMINATION: GENERAL: The patient is alert and oriented x3, not in any acute distress. Well developed, well nourished. HEENT: Pupils are round and equally reacting to light. EOMI. No scleral icterus. No conjunctival pallor. Normocephalic, atraumatic. No pharyngeal erythema. No thyromegaly. CARDIOVASCULAR: S1 and S2 present. No murmurs, rubs, or gallops. PULMONARY: Chest is clear to auscultation, no wheezing or crackles. ABDOMEN: Soft, nontender, nondistended, normoactive bowel sounds. No palpable organomegaly. MUSCULOSKELETAL: No joint swelling or deformity. EXTREMITIES: No cyanosis, clubbing, or pedal edema. NEUROLOGICAL: Gross neurological examination did not reveal any focal deficits. SKIN: No rashes. Assessment and plan Episodes of slurred speech Dizziness Right hip pain Monitor vital signs Monitor CBC Monitor CMP Continue telemetry monitoring Carotid Dopplers negative for any hemodynamically significant stenosis EEG ordered MRI brain PT and OT consulted Neurology following Labs and medication were reviewed.. Continue same treatment. Continue with symptomatic treatment. Resume home medication. Monitor labs and vitals. DVT and GI prophylaxis. Further recommendations as per clinical course of the patient Dictation was produced using [employer] dictation software. please excuse any grammatical, word or spelling errors. Objective - Vital Signs Vital signs: Vital Signs Temp 98.0 F 10/25/22 07:00 Pulse 91 10/25/22 07:00 Resp 16 10/25/22 07:00 BP 121/76 10/25/22 07:00 Pulse Ox 99 10/25/22 07:00 FiO2 Intake & Output 10/24/22 10/25/22 10/25/22 18:59 06:59 18:59 Intake Total 118 Balance 118 Weight 128 kg 128 kg Intake: Oral 118 Other: Voiding Method Bedside Commode Bedside Commode # Voids 2 1 - Labs CBC & Chem 7: 10/24/22 12:36 10/24/22 12:36 Labs: Abnormal Lab Results - Last 24 Hours (Table) 10/24/22 10/24/22 Range/Units 12:36 12:36 APTT 21.5 L (22.0-30.0) sec Sodium 136 L (137-145) mmol/L BUN 25 H (7-17) mg/dL Alkaline Phosphatase 169 H (38-126) U/L
[2022-10-25] MEDS ORDERED: LORazepam 2 MG/ML INJ IV PRN (17:09)
--- NOTE | 2022-10-25 17:21 | P.PN ---
Subjective Progress Note Date: 10/25/22 The patient is seen at beside an is accompanied with her three daughters. She feels back to baseline. Yesterday in the ED she was in agreement to pursue with MRI then today she did not want to pursue with MRI. Per the daughters, she was seen by two different neurologist in [place] and had extensive work-up and unknown cause. Objective - Vital Signs Vital signs: Vital Signs Temp 98.3 F 10/25/22 14:52 Pulse 75 10/25/22 14:52 Resp 16 10/25/22 14:52 BP 117/75 10/25/22 14:52 Pulse Ox 98 10/25/22 14:52 FiO2 Intake & Output 10/24/22 10/25/22 10/25/22 18:59 06:59 18:59 Intake Total 118 Balance 118 Weight 128 kg 128 kg Intake: Oral 118 Other: Voiding Method Bedside Commode Bedside Commode # Voids 2 2 - Exam GENERAL: The patient is resting in a recliner chair is not in acute distress. NEUROLOGICAL: Higher mental function: The patient is awake, alert, oriented to self, place and time. Patient is following commands. No aphasia and no neglect. Cranial nerves: The pupils are round, equal and reactive to light. Visual wagoner are full to confrontation throughout. Extraocular movement is intact no nystagmus is noted. Facial sensation is normal to touch throughout. The facial strength is normal throughout. Tongue is midline and moved [id number] without any difficulty. No dysarthria is noted. Cerebellum: Normal finger to nose bilaterally. Sensation: Sensation is normal to touch throughout. Some of the workup during this hospital stay consisted of: CBC with differential is unremarkable. Sodium is 136. Glucose is 79. Calcium, LFT's is within normal limits. Lipid panel: TG 118, Cholestrol 197, LDL 121, HDL 52 CT of the head is reported as no acute intracranial process. Nonspecific white matter changes, likely secondary due to chronic small vessel ischemic disease. Carotid duplex: Reported as No ultrasound evidence for hemodynamically significant stenosis of the visualized bilateral carotid arterial systems. - Labs CBC & Chem 7: 10/24/22 12:36 10/24/22 12:36 Assessment and Plan Assessment: This is an 87-year-old woman who has been having intermittent slurring the speech since June 2022, chronic low back pain, right hip pain who presents because a worsening of her slurred speech. Upon examining the patient she had no slurred speech but the lowers are limited in the assessment especially right lower because of right hip pain and lower back pain. She states that she's been having pain after prolonged standing up that starts in the feet as since all the way up by her neck and behind the eyes and she'll feel of feels the she slurring states she was seen by two different neurologist and had extensive workup which was negative. Intermittent reported dysarthria that's been recurrent since June 2022 and she states this happens when she stands prolonged period time as a result she has been a sense of her legs up the arms and to the neck and head behind the eyes and then the she would have to last at during these episodes as she feels like she feels off and has slurring of the speech. Episodes resolved. She denies any loss of consciousness. Unknown exact etiology. Unsure if they are truly TIA versus ? Seizure versus other central process Chronic lower back and right hip pain History of altered arthritis Plan: Pending routine EEG to rule out any underlying seizure discharges. Patient is agreement with pursuing MRI Brain. Will give her Ativan IV0.5mg prior to MRI and if needed can repeat Ativan 0.5mg (for total of 1mg) and give Ibuprofen for hip pain. Patient states that she had extensive workup as an outpatient and was seen by different neurologists and the unknown exact cause. If EEG is negative consider prolonged EEG as an outpatient to capture these episodes. Pending 2D echo. In the ED she was started on aspirin 325mg daily. Continue checks On cardiac monitoring PT OT PROCUREMENT ANALYST are consulted We'll defer the rest of the medical management to primary team Upon discharge recommend the patient follow up with a neurologist within 1-2 weeks Plan discussed with the patient, her three daughters who are at bedside, primary attending and her nurse. All of patient and daughters questions were answered. Will continue to follow Time with Patient: Less than 30
[2022-10-25] MEDS: diphenhydrAMINE 25 MG CAP PO PRN (21:45)
[2022-10-26] MEDS: SODIUM CHLORIDE 0.9% 1,000 ML IV SCH ×2 (05:48→17:34)
--- NOTE | 2022-10-26 07:13 | CA ---
Transthoracic Echo Report Name: Sienna Brown Age: 87 Gender: F : 1935 Exam Date: 10/25/2022 10:11 Exam Location: [facility] Ht (in): 59 Wt (lb): 125 Ordering Physician: Bakari Ellington DO Attending/Referring Phys: Cheese Tester Sol Magana RDCS Procedure CPT: Indications: Thrombus Cardiac Hx: Technical Quality: Good Contrast 1: Total Dose (mL): Contrast 2: Total Dose (mL): MEASUREMENTS (Male / Female) Normal Values 2D ECHO LV Diastolic Diameter PLAX 3.7 cm 4.2 - 5.9 / 3.9 - 5.3 cm LV Systolic Diameter PLAX 2.6 cm IVS Diastolic Thickness 1.1 cm 0.6 - 1.0 / 0.6 - 0.9 cm LVPW Diastolic Thickness 1.1 cm 0.6 - 1.0 / 0.6 - 0.9 cm LV Relative Wall Thickness 0.6 RV Internal Dim ED PLAX 2.9 cm LA Systolic Diameter LX 3.3 cm 3.0 - 4.0 / 2.7 - 3.8 cm LV Diastolic Volume MOD 4C 50.8 cm??? LV Systolic Volume MOD 4C 21.5 cm??? LV Ejection Fraction MOD 4C 57.6 % LV Cardiac Index MOD 4C 1320.9 cm???/min???m??? LV Diastolic Length 4C 7.9 cm LV Systolic Length 4C 6.3 cm LV Diastolic Volume MOD 2C 56.0 cm??? LV Systolic Volume MOD 2C 22.3 cm??? LV Ejection Fraction MOD 2C 60.2 % LV Cardiac Index MOD 2C 1521.7 cm???/min???m??? LV Diastolic Length 2C 6.7 cm LV Systolic Length 2C 5.6 cm LA Volume 34.1 cm??? 18 - 58 / 22 - 52 cm??? M-MODE Aortic Root Diameter MM 2.8 cm MV E Point Septal Separation 0.5 cm AV Cusp Separation MM 2.1 cm DOPPLER AV Peak Velocity 143.9 cm/s AV Peak Gradient 8.3 mmHg MV Area PHT 2.7 cm??? Mitral E Point Velocity 89.6 cm/s Mitral A Point Velocity 119.2 cm/s Mitral E to A Ratio 0.8 MV Deceleration Time 284.0 ms MV E' Velocity 6.1 cm/s Mitral E to MV E' Ratio 14.7 TR Peak Velocity 215.8 cm/s TR Peak Gradient 18.6 mmHg Right Ventricular Systolic Press 23.1 mmHg FINDINGS Left Ventricle Left ventricular ejection fraction is estimated at 55-60 %. Small left ventricular cavity. Mildly increased septal wall thickness. Mildly increased posterior wall thickness. Right Ventricle Normal right ventricular size. Right ventricular systolic pressure within normal limits. Right Atrium Normal right atrial size. Left Atrium Normal left atrial size. Mitral Valve Mitral valve thickened. Mitral annular calcification. Trace mitral regurgitation. Aortic Valve Trileaflet aortic valve. No aortic valve stenosis or regurgitation. Thickened aortic valve without stenosis. Tricuspid Valve Structurally normal tricuspid valve. Mild tricuspid regurgitation. Pulmonic Valve Structurally normal pulmonic valve. No pulmonic regurgitation. Pericardium No pericardial effusion. Aorta Normal size aortic root and proximal ascending aorta. CONCLUSIONS Normal LV systolic function. Mild LVH. No significant valvular abnormalities seen No evidence of pericardial effusion Previewed by: Dr. Lewis Velazquez MD (Electronically Signed) Final Date: 26 October 2022 07:12
[2022-10-26] MEDS: DOCUSATE 100 MG CAP PO SCH ×2 (09:07→20:14)
[2022-10-26] MEDS: ASPIRIN 325 MG TAB PO SCH (09:07)
--- NOTE | 2022-10-26 12:17 | P.PN ---
Subjective Progress Note Date: 10/26/22 patient is a 87-year-old lady with past medical history significant for back pain who presented to the ER for episodes of slurred speech. Patient states that she has been dealing with these episodes of slurred speech since June. Patient states this these episodes are intermittent. Patient also complains of episodes of pressure behind her eyes and her head feeling full associated with neck pains. Denies any weakness of any extremity. Denies any facial droop. No complaint of any passing out. Patient has been seeing therapy for her right hip pain. This morning patient had episode of slurred speech that made her concerned and wanted to come to the ER Initial lab work done in the ER showed WBC 6, hemoglobin 13.8 platelet count 450, sodium 136, potassium 4.9, BUN 25, creatinine 0.76 CT brain done showed no acute intracranial process Chest x-ray done in the ER showed no acute cardiopulmonary process She admitted to medicine service 10/25. Patient seen and examined. Still having episodes of slurred speech. No other sensory or motor deficit 10/26. Patient seen and examined. Still having right hip pain. REVIEW OF SYSTEMS: CONSTITUTIONAL: No fever, no malaise,. CARDIOVASCULAR: No chest pain, no palpitations, no syncope. PULMONARY: No shortness of breath, no cough, GASTROINTESTINAL: No diarrhea, no nausea, no vomiting, no abdominal pain. NEUROLOGICAL: No headaches, no weakness, PHYSICAL EXAMINATION: GENERAL: The patient is alert and oriented x3, not in any acute distress. Well developed, well nourished. HEENT: Pupils are round and equally reacting to light. EOMI. No scleral icterus. No conjunctival pallor. Normocephalic, atraumatic. No pharyngeal erythema. No thyromegaly. CARDIOVASCULAR: S1 and S2 present. No murmurs, rubs, or gallops. PULMONARY: Chest is clear to auscultation, no wheezing or crackles. ABDOMEN: Soft, nontender, nondistended, normoactive bowel sounds. No palpable organomegaly. MUSCULOSKELETAL: No joint swelling or deformity. EXTREMITIES: No cyanosis, clubbing, or pedal edema. NEUROLOGICAL: Gross neurological examination did not reveal any focal deficits. SKIN: No rashes. Assessment and plan Episodes of slurred speech Dizziness Right hip pain Monitor vital signs Monitor CBC Monitor CMP Continue telemetry monitoring Carotid Dopplers negative for any hemodynamically significant stenosis EEG ordered MRI brain ordered PT and OT consulted Neurology following Orthopedic consulted, they ordered x-ray hip and Lumbar spine Labs and medication were reviewed.. Continue same treatment. Continue with symptomatic treatment. Resume home medication. Monitor labs and vitals. DVT and GI prophylaxis. Further recommendations as per clinical course of the patient Dictation was produced using [employer] dictation software. please excuse any grammatical, word or spelling errors. Objective - Vital Signs Vital signs: Vital Signs Temp 98.7 F 10/26/22 07:00 Pulse 79 10/26/22 07:00 Resp 16 10/26/22 07:00 BP 130/75 10/26/22 07:00 Pulse Ox 95 10/26/22 07:00 FiO2 Intake & Output 10/25/22 10/26/22 10/26/22 18:59 06:59 18:59 Intake Total 236 118 Balance 236 118 Intake: Oral 236 118 Other: Voiding Method Bedside Commode # Voids 2 1 - Labs CBC & Chem 7: 10/24/22 12:36 10/24/22 12:36
--- NOTE | 2022-10-26 15:16 | P.PN ---
Subjective Progress Note Date: 10/26/22 The patient is seen at bedside and is accompanied by her two daughters. She feels about the same. She is having right hip pain. Denies of any new neurological issues. Pending MRI Brain. Objective - Vital Signs Vital signs: Vital Signs Temp 98.7 F 10/26/22 07:00 Pulse 79 10/26/22 07:00 Resp 16 10/26/22 07:00 BP 130/75 10/26/22 07:00 Pulse Ox 95 10/26/22 07:00 FiO2 Intake & Output 10/25/22 10/26/22 10/26/22 18:59 06:59 18:59 Intake Total 236 118 Balance 236 118 Intake: Oral 236 118 Other: Voiding Method Bedside Commode # Voids 2 1 - Exam GENERAL: The patient is resting in a recliner chair is not in acute distress. NEUROLOGICAL: Higher mental function: The patient is awake, alert, oriented to self, place and time. Patient is following commands. No aphasia and no neglect. Cranial nerves: The pupils are round, equal and reactive to light. Visual wagoner are full to confrontation throughout. Extraocular movement is intact no nystagmus is noted. Facial sensation is normal to touch throughout. The facial strength is normal throughout. Tongue is midline and moved [id number] without any difficulty. No dysarthria is noted. Cerebellum: Normal finger to nose bilaterally. Sensation: Sensation is normal to touch throughout. Some of the workup during this hospital stay consisted of: CBC with differential is unremarkable. Sodium is 136. Glucose is 79. Calcium, LFT's is within normal limits. Lipid panel: TG 118, Cholestrol 197, LDL 121, HDL 52 CT of the head is reported as no acute intracranial process. Nonspecific white matter changes, likely secondary due to chronic small vessel ischemic disease. Carotid duplex: Reported as No ultrasound evidence for hemodynamically significant stenosis of the visualized bilateral carotid arterial systems. 2D echo: Is reported as normal LV systolic function. Mild LVH. No significant valvular abnormality seen. Routine EEG: Preliminary report is negative for seizures. - Labs CBC & Chem 7: 10/24/22 12:36 10/24/22 12:36 Assessment and Plan Assessment: This is an 87-year-old woman who has been having intermittent slurring the speech since June 2022, chronic low back pain, right hip pain who presents because a worsening of her slurred speech. Upon examining the patient she had no slurred speech but the lowers are limited in the assessment especially right lower because of right hip pain and lower back pain. She states that she's been having pain after prolonged standing up that starts in the feet as since all the way up by her neck and behind the eyes and she'll feel of feels the she slurring states she was seen by two different neurologist and had extensive workup which was negative. Intermittent reported dysarthria that's been recurrent since June 2022 and she states this happens when she stands prolonged period time as a result she has been a sense of her legs up the arms and to the neck and head behind the eyes and then the she would have to last at during these episodes as she feels like she feels off and has slurring of the speech. Episodes resolved. She denies any loss of consciousness. Unknown exact etiology. Unsure if they are truly TIA versus ? Seizure versus other central process. Routine EEG is negative for seizure Chronic lower back and right hip pain History of altered arthritis Plan: Preliminary EEG is negative for seizure. Pending MRI Brain and is scheduled for tomorrow. Will give her Ativan IV0.5mg prior to MRI and if needed can repeat Ativan 0.5mg (for total of 1mg) and give I buprofen for hip pain. Patient states that she had extensive workup as an outpatient and was seen by different neurologists and the unknown exact cause. If EEG is negative consider prolonged EEG as an outpatient to capture these episodes. In the ED she was started on aspirin 325mg daily. Continue checks On cardiac monitoring PT OT CHEMICAL PLANT OPERATOR are consulted We'll defer the rest of the medical management to primary team Upon discharge recommend the patient follow up with a neurologist within 1-2 weeks Plan discussed with the patient, her two daughters who are at bedside, primary attending and her nurse. Will continue to follow Time with Patient: Less than 30
--- NOTE | 2022-10-26 15:33 | XR ---
EXAMINATION TYPE: XR lumbar spine 2 or 3V, XR Hip Complete 2 views RT DATE OF EXAM: 10/26/2022 Comparison: None Clinical History: 87-year-old female right hip pain s/p fall Findings: Lumbar spine: 5 lumbar type vertebral bodies. Cholecystectomy clips. Moderate to large stool burden. 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 Hypertrophic facet arthropathy especially lower lumbar spine with degenerative gr kylee 1 anterolisthesis L4-L5 and L5-S1. Vertebral body heights are preserved. Mild multilevel degenera tive disc disease. Right hip: The right vertebral artery plasty appears well seated. No periprosthetic fracture. Alignment grossly anatomic. Suture anchor inferior right pubic ramus. IMPRESSION: Lumbar spine: 1. Osteopenia. No vertebral compression collapse. Mild multilevel degenerative disc disease. 2. Hypertrophic facet arthropathy especially mid to lower lumbar spine with degenerative grade 1 ante rolisthesis of L4-S1 levels. Right hip: 3. Uncomplicated right hip total arthroplasty.
--- NOTE | 2022-10-26 15:41 | P.CNOR ---
History of Present Illness - [facility] Consult date: 10/26/22 Consult reason: joint pain, other History of present illness: Patient is an 87 year old female seen at bedside today in consultation for right hip pain. She states that she fell on her bottom about 5 weeks ago and has had right buttock. hip and leg pain since. She states she had xrays done elsewhere which were negative. She had a right JOHN done per Dr. Prasanth Juarez in 2019. She has also been treated for her lumbar spine previously including injections per Dr. Montiel. She states she has neuropathy and doesn't have new numbness down her right leg. She has no left sided symptoms. Review of Systems All systems: negative Constitutional: Denies chills, Denies fever Eyes: denies blurred vision, denies pain Ears, nose, mouth and throat: Denies headache, Denies sore throat Cardiovascular: Denies chest pain, Denies shortness of breath Respiratory: Denies cough Gastrointestinal: Denies abdominal pain, Denies diarrhea, Denies nausea, Denies vomiting Genitourinary: Denies dysuria, Denies hematuria Musculoskeletal: Denies myalgias Integumentary: Denies pruritus, Denies rash Neurological: Denies numbness, Denies weakness Psychiatric: Denies anxiety, Denies depression Endocrine: Denies fatigue, Denies weight change Past Medical History Past Medical History: Cancer, GERD/Reflux, Osteoarthritis (OA) Additional Past Medical History / Comment(s): SKIN CANCER , high cholesterol not treated due to statin intolerance, overactive bladder, sinusitis History of Any Multi-Drug Resistant Organisms: None Reported Past Surgical History: Bladder Surgery, Cholecystectomy, Hysterectomy, Joint Replacement Additional Past Surgical History / Comment(s): BLADDER SUSPENSION , 2- LEFT BREAST BIOPSY, COLONOSCOPY, SKIN LESIONS- RIGHT UPPER ARM,UPPER BACK LESION, LEFT TOTAL HIP Past Anesthesia/Blood Transfusion Reactions: Motion Sickness Past Psychological History: No Psychological Hx Reported Smoking Status: Former smoker Past Alcohol Use History: None Reported Additional Past Alcohol Use History / Comment(s): STARTED SMOKING AT AGE 10 QUIT SMOKING AT AGE 50 SMOKED 1/2 PPD Past Drug Use History: None Reported - Past Family History Mother Family Medical History: Cancer Medications and Allergies Home Medications Medication Instructions Recorded Confirmed Type Ibuprofen [Motrin] 800 mg PO DAILY 10/24/22 10/24/22 History Allergies Allergy/AdvReac Type Severity Reaction Status Date / Time No Known Allergies Allergy Verified 10/24/22 14:59 Physical Examination Inspection of the lower extremities shows no deformity of the right lower extremity. There are no wounds, erythema or ecchymoses. The knee is nontender without effusion. She has painless range of motion of the knee, ankle foot and toes. Range of motion of the right hip reproduces pain wth flexion and straight leg raise. Neurovascular status is grossly intact throughout the lower extremity with motor and sensation. Hip strength is limited due to pain. Reflexes are 1+ at KJ and AJ. Calf is soft and nontender. 2+ dorsalis pedis pulse and less than 2 second cap refill is present. Results Xrays of the right hip show components in place with no evidence of loosening or migration. No fracture Xrays of [facility] lumbar spine show multilevel degenerative disc disease with grade 1 spondylolisthesis at L4-5. No acute fracture seen - Labs Labs: H & H 10/24/22 Range/Units 12:36 Hgb 13.8 (11.4-16.0) gm/dL Hct 42.3 (34.0-46.0) % Coagulation 10/24/22 Range/Units 12:36 INR 0.9 (<1.2) Result Diagrams: 10/24/22 12:36 10/24/22 12:36 - Diagnostic results Hip x-ray: image reviewed Lumbar AP/lateral x-ray: image reviewed Assessment and Plan (1) Degeneration of lumbar intervertebral disc Narrative/Plan: There are no plans for immediate surgical intervention. Suspect that majority of her hip and leg symptoms are originating from her lumbar spine. She may benefit from a trial of corticosteroids if okay with primary team. Would also consider PT and pain management. We will follow peripherally. Current Visit: Yes Status: Acute Code(s): M51.36 - OTHER INTERVERTEBRAL DISC DEGENERATION, LUMBAR REGION SNOMED Code(s): 27040534 (2) Spondylolisthesis, lumbar region Current Visit: Yes Status: Acute Code(s): M43.16 - SPONDYLOLISTHESIS, LUMBAR REGION SNOMED Code(s): 571687290354985 (3) Osteoarthritis of right hip Current Visit: No Status: Acute Code(s): M16.11 - UNILATERAL PRIMARY OSTEOARTHRITIS, RIGHT HIP SNOMED Code(s): 479614603506467 (4) S/P total hip arthroplasty Current Visit: No Status: Acute Code(s): Z96.649 - PRESENCE OF UNSPECIFIED ARTIFICIAL HIP JOINT SNOMED Code(s): 367528259726 Time with Patient: Less than 30
[2022-10-26] MEDS: IBUPROFEN 600 MG TAB PO PRN ×2 (16:29→20:15)
[2022-10-26] MEDS: diphenhydrAMINE 25 MG CAP PO PRN (20:14)
[2022-10-26] MEDS: levETIRAcetam 500 MG TAB PO SCH (20:15)
[2022-10-27] MEDS: SODIUM CHLORIDE 0.9% 1,000 ML IV SCH ×3 (03:38→19:54)
[2022-10-27] MEDS ORDERED: LORazepam 2 MG/ML INJ IV PRN (08:17)
[2022-10-27] MEDS: IBUPROFEN 600 MG TAB PO PRN ×2 (08:24→16:54)
--- NOTE | 2022-10-27 09:48 | EEG ---
ELECTROENCEPHALOGRAM REPORT CLINICAL HISTORY: This is an 87-year-old woman with recurrent flaring of the seizure. The video EEG is obtained to evaluate for seizure and discharges. RELEVANT MEDICATIONS: The patient is not on any antiepileptic drugs. EEG TYPE: A routine 21-channel EEG with video using the 10/20 electrode placement system. DESCRIPTION: Wakefulness is obtained. During awake state, the posterior-dominant rhythm consists of [id number]-rt-[id number] voltage of 8.5 Hz activity. There is no physiological stage II sleep architecture. There is no focal slowing. INTERICTAL AND ICTAL: There is moderate voltage of 2.5-3 Hz delta lasting about 2-3 seconds over the left temporal that is semirhythmic. There is sharp and slow waves over the left temporal. No seizure is noted. ACTIVATION PROCEDURE: The patient has posterior driving response at multiple flash frequencies. There is no abnormality during the photic stimulation. Hyperventilation is not performed. CLINICAL INTERPRETATION: This is an abnormal routine EEG. There is delta slowing over the left temporal region which is due to focal cerebral dysfunction. There is left temporal epileptiform discharges that can increase risk for seizures or status epilepticus. No seizure noted during this study. Clinical correlation is recommended. MMODL / IJN: [id number] / NIKKI
[2022-10-27] MEDS: ASPIRIN 325 MG TAB PO SCH (09:52)
[2022-10-27] MEDS: levETIRAcetam 500 MG TAB PO SCH ×2 (09:52→19:54)
[2022-10-27] MEDS: DOCUSATE 100 MG CAP PO SCH ×2 (09:53→19:54)
[2022-10-27] MEDS: methylPREDNISolone 4 MG TAB TAPER PO SCH (10:41)
--- NOTE | 2022-10-27 10:47 | MR ---
EXAMINATION TYPE: MR brain wo/w con DATE OF EXAM: 10/27/2022 9:31 AM CLINICAL INDICATION:Female, 87 years old with history of tia; Neuro deficit, acute stroke suspected. COMPARISON: 10/16/2022 TECHNIQUE: Multi planar, multi sequence imaging was performed through the brain including: T1, T2, In version recovery, susceptibility weighted imaging and gradient echo imaging and Diffusion weighted im aging. The patient was then given intravenous contrast and multi planar, T1 fat-saturation images wer e obtained. IV Contrast: 5.5 cc Gadavist FINDINGS: Cerebral atrophy with proportional dilation of the ventricular system.. Diffusion-weighted imaging sh ows no evidence of restricted diffusion to suggest acute/subacute infarct. Intracranial arterial flow voids are maintained. Midline structures show no abnormality. Scattered foci of high T2 signal inten sity are seen within the periventricular white matter. The susceptibility weighted images do not reve al any evidence for micro-hemorrhage. After administration of gadolinium, no abnormal enhancement is seen. The bone marrow signal is within normal limits. Paranasal sinuses and mastoid air cells: No significant paranasal sinus disease. Visualized orbits: Bilateral aphakia IMPRESSION: 1. No evidence of intracranial mass, acute/subacute infarct, or abnormal enhancement. 2. Nonspecific white matter changes, likely related to small vessel ischemic disease
--- NOTE | 2022-10-27 12:09 | P.PN ---
Subjective Progress Note Date: 10/27/22 patient is a 87-year-old lady with past medical history significant for back pain who presented to the ER for episodes of slurred speech. Patient states that she has been dealing with these episodes of slurred speech since June. Patient states this these episodes are intermittent. Patient also complains of episodes of pressure behind her eyes and her head feeling full associated with neck pains. Denies any weakness of any extremity. Denies any facial droop. No complaint of any passing out. Patient has been seeing therapy for her right hip pain. This morning patient had episode of slurred speech that made her concerned and wanted to come to the ER Initial lab work done in the ER showed WBC 6, hemoglobin 13.8 platelet count 450, sodium 136, potassium 4.9, BUN 25, creatinine 0.76 CT brain done showed no acute intracranial process Chest x-ray done in the ER showed no acute cardiopulmonary process She admitted to medicine service 10/25. Patient seen and examined. Still having episodes of slurred speech. No other sensory or motor deficit 10/26. Patient seen and examined. Still having right hip pain. 10/27. Patient seen and examined. Hip and lumbar spine x-rays reviewed, no evidence of any fractures. MRI brain showed no evidence of intracranial mass, acute/subacute infarct or abnormal enhancement REVIEW OF SYSTEMS: CONSTITUTIONAL: No fever, no malaise,. CARDIOVASCULAR: No chest pain, no palpitations, no syncope. PULMONARY: No shortness of breath, no cough, GASTROINTESTINAL: No diarrhea, no nausea, no vomiting, no abdominal pain. NEUROLOGICAL: No headaches, no weakness, PHYSICAL EXAMINATION: GENERAL: The patient is alert and oriented x3, not in any acute distress. Well developed, well nourished. HEENT: Pupils are round and equally reacting to light. EOMI. No scleral icterus. No conjunctival pallor. Normocephalic, atraumatic. No pharyngeal erythema. No thyromegaly. CARDIOVASCULAR: S1 and S2 present. No murmurs, rubs, or gallops. PULMONARY: Chest is clear to auscultation, no wheezing or crackles. ABDOMEN: Soft, nontender, nondistended, normoactive bowel sounds. No palpable organomegaly. MUSCULOSKELETAL: No joint swelling or deformity. EXTREMITIES: No cyanosis, clubbing, or pedal edema. NEUROLOGICAL: Gross neurological examination did not reveal any focal deficits. SKIN: No rashes. Assessment and plan Episodes of slurred speech Dizziness Right hip pain Monitor vital signs Monitor CBC Monitor CMP Continue telemetry monitoring Carotid Dopplers negative for any hemodynamically significant stenosis EEG negative for any seizure-like activity, neurology recommended extended EEG is scheduled for today. MRI brain negative for any acute intrarenal process PT and OT consulted Neurology following, started on Keppra because of high suspicion of seizure Orthopedic consulted,x-ray hip and Lumbar spine negative for any fractures Labs and medication were reviewed.. Continue same treatment. Continue with symptomatic treatment. Resume home medication. Monitor labs and vitals. DVT and GI prophylaxis. Further recommendations as per clinical course of the patient Dictation was produced using [employer] dictation software. please excuse any grammatical, word or spelling errors. Objective - Vital Signs Vital signs: Vital Signs Temp 97.6 F 10/27/22 07:00 Pulse 64 10/27/22 07:00 Resp 16 10/27/22 07:00 BP 92/52 10/27/22 07:00 Pulse Ox 99 10/27/22 07:00 FiO2 Intake & Output 10/26/22 10/27/22 10/27/22 18:59 06:59 18:59 Intake Total 918 Balance 918 Weight 58.06 kg Intake: Intake, IV Titration 800 Amount Sodium Chloride 0.9% 1, 800 000 ml @ 100 mls/hr IV . Q10H ELLEN Rx#:[id number] Oral 118 Other: # Voids 1 - Labs CBC & Chem 7: 10/24/22 12:36 10/24/22 12:36
--- NOTE | 2022-10-27 13:16 | P.PN ---
Subjective Progress Note Date: 10/27/22 I am following-up seeing the patient and states doing well. Denies of any new neurological issues. Per patient and her daughters it seems she has been having for past 8-9 years pressure sensation that ascends to her head, feels off and she has to close her eye and would last at least 20 minutes. The episodes has become more frequent. Then in June 2022 she started having dysarthria. She denies LOC, urinary or bowel incontinence. She was seen by two different neurologist (Dr. Luna and Aly) and per patient and daughters she had MRI and other work-up but does not recall having EEG. Objective - Vital Signs Vital signs: Vital Signs Temp 97.6 F 10/27/22 07:00 Pulse 64 10/27/22 07:00 Resp 16 10/27/22 07:00 BP 92/52 10/27/22 07:00 Pulse Ox 99 10/27/22 07:00 FiO2 Intake & Output 10/26/22 10/27/22 10/27/22 18:59 06:59 18:59 Intake Total 918 Balance 918 Weight 58.06 kg Intake: Intake, IV Titration 800 Amount Sodium Chloride 0.9% 1, 800 000 ml @ 100 mls/hr IV . Q10H ELLEN Rx#:[id number] Oral 118 Other: # Voids 1 - Labs CBC & Chem 7: 10/24/22 12:36 10/24/22 12:36 Assessment and Plan Assessment: This is an 87-year-old woman who has been having intermittent slurring the speech since June 2022, chronic low back pain, right hip pain who presents because a worsening of her slurred speech. Upon examining the patient she had no slurred speech but the lowers are limited in the assessment especially right lower because of right hip pain and lower back pain. She states that she's been having pain after prolonged standing up that starts in the feet as since all the way up by her neck and behind the eyes and she'll feel of feels the she slurring states she was seen by two different neurologist and had extensive workup which was negative. Episode of pressure sensation that ascends to her head, feeling something is off for past 8-9 years and has to close her eyes for at least 20 minutes and becoming more frequent and then since June 2022 having intermittent recurrent dysarthria: I feel likely newly diagnosis. On EEG has left temporal discharges and delta slowing but no seizure on routine EEG. Chronic lower back and right hip pain History of altered arthritis Plan: I will obtain a 2.5 hour EEG. I started the patient on keppra 500mg bid on 10/26/2022. She was notified of side-effects of medication. MRI Brain w/ and w/o: It is reported as no evidence of intracranial mass, acute/subacute infarct or abnormal enhancement. Nonspecific white matter changes, likely related to small vessel ischemic disease. Consider Epilepsy monitoring unit (EMU) or prolonged EEG if episodes are not ca pture during 2.5hour EEG. In the ED she was started on aspirin 325mg daily. Continue checks On cardiac monitoring PT OT CLINICAL DIETETIC TECHNICIAN are consulted We'll defer the rest of the medical management to primary team Upon discharge recommend the patient follow up with a neurologist within 1-2 weeks Plan discussed with the patient, primary attending and her nurse. Will continue to follow Time with Patient: Less than 30
--- NOTE | 2022-10-27 18:28 | EEG ---
ELECTROENCEPHALOGRAM REPORT ELECTROENCEPHALOGRAM (EEG) REPORT: TECHNIQUE: This is a report from a prolonged 2-1/2-hour inpatient digital video EEG performed using the 10/20 International Electrode Placement System. HISTORY: Slurred speech. CURRENT MEDICATIONS: 1. Aspirin. 2. Benadryl. 3. Colace. 4. Motrin. 5. Keppra. FINDINGS: RECORDING START TIME: 10/27/2022, at 11:51 a.m. RECORDING END TIME: 10/27/2022, at 1504 hours. EVENTS: During this 2-1/2-hour video EEG, no clinical or electrographic seizures were recorded. BACKGROUND: The background activity consisted of 8 to 9 Hz rhythmic waveforms symmetrically distributed throughout both posterior quadrants. ACTIVATION: 1. Hyperventilation: Not performed. 2. Photic stimulation: Symmetric driving seen. SLEEP: Stages I and II sleep noted. ABNORMALITIES: None. IMPRESSION: Normal 2-1/2-hour video EEG. No clinical or electrographic seizures were recorded. No epileptiform activity was present. These findings were called to the consulting neurologist, at 03:51 p.m., on 10/27/2022. MMODL / IJN: [id number] /
[2022-10-27] MEDS: diphenhydrAMINE 25 MG CAP PO PRN (21:51)
[2022-10-28] MEDS: levETIRAcetam 500 MG TAB PO SCH (08:57)
[2022-10-28] MEDS: ASPIRIN 325 MG TAB PO SCH (08:57)
[2022-10-28] MEDS: DOCUSATE 100 MG CAP PO SCH ×2 (08:57→20:54)
[2022-10-28] MEDS: methylPREDNISolone 4 MG TAB TAPER PO SCH (08:57)
[2022-10-28] MEDS: SODIUM CHLORIDE 0.9% 1,000 ML IV SCH ×2 (10:25→20:55)
--- NOTE | 2022-10-28 11:45 | P.PN ---
Subjective Progress Note Date: 10/28/22 I am following-up and she states she had an episode earlier today when she had difficulty getting her words out, had close her eyes. She had 2.5 hour video EEG yesterday and reported as normal. Objective - Vital Signs Vital signs: Vital Signs Temp 98.5 F 10/28/22 08:00 Pulse 67 10/28/22 08:00 Resp 16 10/28/22 08:57 BP 114/71 10/28/22 08:00 Pulse Ox 96 10/28/22 08:54 FiO2 21 10/28/22 08:54 Intake & Output 10/27/22 10/28/22 10/28/22 18:59 06:59 18:59 Intake Total 118 240 Balance 118 240 Weight 58.06 kg Intake: Intake, IV Titration 0 Amount Sodium Chloride 0.9% 1, 0 000 ml @ 100 mls/hr IV . Q10H ELLEN Rx#:[id number] Oral 118 240 Other: Voiding Method Bedside Commode Bedside Commode # Voids 3 1 - Exam GENERAL: The patient is resting in a recliner chair is not in acute distress. NEUROLOGICAL: Higher mental function: The patient is awake, alert, oriented to self, place and time. Patient is following commands. No aphasia and no neglect. Cranial nerves: The pupils are round, equal and reactive to light. Visual wagoner are full to confrontation throughout. Extraocular movement is intact no nystagmus is noted. Facial sensation is normal to touch throughout. The facial strength is normal throughout. Tongue is midline and moved [id number] without any difficulty. No dysarthria is noted. Cerebellum: Normal finger to nose bilaterally. Sensation: Sensation is normal to touch throughout. Some of the workup during this hospital stay consisted of: CBC with differential is unremarkable. Sodium is 136. Glucose is 79. Calcium, LFT's is within normal limits. Lipid panel: TG 118, Cholestrol 197, LDL 121, HDL 52 CT of the head is reported as no acute intracranial process. Nonspecific white matter changes, likely secondary due to chronic small vessel ischemic disease. Carotid duplex: Reported as No ultrasound evidence for hemodynamically significant stenosis of the visualized bilateral carotid arterial systems. 2D echo: Is reported as normal LV systolic function. Mild LVH. No significant valvular abnormality seen. Routine EEG: Preliminary report is negative for seizures. 2.5 hour video eeg on 10/27/2022: Is reported as normal. No clinical or electro graphic seizures were recorded. No epileptiform activity was present. - Labs CBC & Chem 7: 10/24/22 12:36 10/24/22 12:36 Assessment and Plan Assessment: This is an 87-year-old woman who has been having intermittent slurring the speech since June 2022, chronic low back pain, right hip pain who presents because a worsening of her slurred speech. Upon examining the patient she had no slurred speech but the lowers are limited in the assessment especially right lower because of right hip pain and lower back pain. She states that she's been having pain after prolonged standing up that starts in the feet as since all the way up by her neck and behind the eyes and she'll feel of feels the she slurring states she was seen by two different neurologist and had extensive workup which was negative. Recurrent Episodes of pressure sensation that ascends to her head, feeling something is off for past 8-9 years, has generalized weakness and has to close her eyes for at least 20 minutes and becoming more frequent and then since June 2022 having intermittent recurrent dysarthria: I feel likely newly diagnosis seizures. On routine EEG has left temporal discharges and delta slowing but no seizure on routine EEG but on 2.5 hour EEG is reported as normal. Chronic lower back and right hip pain History of altered arthritis Plan: I increased Keppra from 500mg bid to 750mg bid since had another episode earlier today (medication is new and was not on antiepileptic drugs prior to this admission). MRI Brain w/ and w/o: It is reported as no evidence of intracranial mass, acute/subacute infarct or abnormal enhancement. Nonspecific white matter changes, likely related to small vessel ischemic disease. Consider Epilepsy monitoring unit (EMU) or prolonged EEG as outpatient to capt ure those episodes. Continue checks On cardiac monitoring PT OT [employer] are consulted We'll defer the rest of the medical management to primary team Upon discharge recommend the patient follow up with a neurologist within 1-2 weeks (she follows-up with Dr. Dodd). Plan discussed with the patient, primary attending and her nurse. Otherwise no additional neurological work-up. Time with Patient: Less than 30
[2022-10-28] MEDS: IBUPROFEN 600 MG TAB PO PRN ×2 (12:20→20:59)
--- NOTE | 2022-10-28 12:37 | P.PN ---
Subjective Progress Note Date: 10/28/22 patient is a 87-year-old lady with past medical history significant for back pain who presented to the ER for episodes of slurred speech. Patient states that she has been dealing with these episodes of slurred speech since June. Patient states this these episodes are intermittent. Patient also complains of episodes of pressure behind her eyes and her head feeling full associated with neck pains. Denies any weakness of any extremity. Denies any facial droop. No complaint of any passing out. Patient has been seeing therapy for her right hip pain. This morning patient had episode of slurred speech that made her concerned and wanted to come to the ER Initial lab work done in the ER showed WBC 6, hemoglobin 13.8 platelet count 450, sodium 136, potassium 4.9, BUN 25, creatinine 0.76 CT brain done showed no acute intracranial process Chest x-ray done in the ER showed no acute cardiopulmonary process She admitted to medicine service 10/25. Patient seen and examined. Still having episodes of slurred speech. No other sensory or motor deficit 10/26. Patient seen and examined. Still having right hip pain. 10/27. Patient seen and examined. Hip and lumbar spine x-rays reviewed, no evidence of any fractures. MRI brain showed no evidence of intracranial mass, acute/subacute infarct or abnormal enhancement 10/28. Patient seen and examined. Patient had prolonged EEG yesterday which was negative for any seizures. Currently on Keppra per neurology recommendations. Patient had episode this morning of slurred speech, neurology increased the dose to Keppra to 750 milligrams twice daily REVIEW OF SYSTEMS: CONSTITUTIONAL: No fever, no malaise,. CARDIOVASCULAR: No chest pain, no palpitations, no syncope. PULMONARY: No shortness of breath, no cough, GASTROINTESTINAL: No diarrhea, no nausea, no vomiting, no abdominal pain. NEUROLOGICAL: No headaches, no weakness, PHYSICAL EXAMINATION: GENERAL: The patient is alert and oriented x3, not in any acute distress. Well developed, well nourished. HEENT: Pupils are round and equally reacting to light. EOMI. No scleral icterus. No conjunctival pallor. Normocephalic, atraumatic. No pharyngeal erythema. No thyromegaly. CARDIOVASCULAR: S1 and S2 present. No murmurs, rubs, or gallops. PULMONARY: Chest is clear to auscultation, no wheezing or crackles. ABDOMEN: Soft, nontender, nondistended, normoactive bowel sounds. No palpable organomegaly. MUSCULOSKELETAL: No joint swelling or deformity. EXTREMITIES: No cyanosis, clubbing, or pedal edema. NEUROLOGICAL: Gross neurological examination did not reveal any focal deficits. SKIN: No rashes. Assessment and plan Episodes of slurred speech Dizziness Right hip pain Monitor vital signs Monitor CBC Monitor CMP Continue telemetry monitoring Carotid Dopplers negative for any hemodynamically significant stenosis EEG negative for any seizure-like activity, neurology recommended extended EEG is scheduled for today. MRI brain negative for any acute intrarenal process PT and OT consulted Neurology following, started on Keppra because of high suspicion of seizure, does increased to 750 mg twice daily. neurology recommended Epilepsy monitoring unit (EMU) or prolonged EEG as outpatient to capture those episodes. Orthopedic consulted,x-ray hip and Lumbar spine negative for any fractures Labs and medication were reviewed.. Continue same treatment. Continue with symptomatic treatment. Resume home medication. Monitor labs and vitals. DVT and GI prophylaxis. Further recommendations as per clinical course of the patient Dictation was produced using [employer] dictation software. please excuse any grammatical, word or spelling errors. Objective - Vital Signs Vital signs: Vital Signs Temp 98.5 F 10/28/22 08:00 Pulse 67 10/28/22 08:00 Resp 16 10/28/22 08:57 BP 114/71 10/28/22 08:00 Pulse Ox 96 10/28/22 08:54 FiO2 21 10/28/22 08:54 Intake & Output 10/27/22 10/28/22 10/28/22 18:59 06:59 18:59 Intake Total 118 240 Balance 118 240 Weight 58.06 kg Intake: Intake, IV Titration 0 Amount Sodium Chloride 0.9% 1, 0 000 ml @ 100 mls/hr IV . Q10H ELLEN Rx#:[id number] Oral 118 240 Other: Voiding Method Bedside Commode Bedside Commode # Voids 3 1 - Labs CBC & Chem 7: 10/24/22 12:36 10/24/22 12:36
[2022-10-29] MEDS: SODIUM CHLORIDE 0.9% 1,000 ML IV SCH ×2 (04:11→16:03)
[2022-10-29] MEDS: DOCUSATE 100 MG CAP PO SCH ×2 (08:51→21:45)
[2022-10-29] MEDS: ASPIRIN 325 MG TAB PO SCH (08:51)
[2022-10-29] MEDS: methylPREDNISolone 4 MG TAB TAPER PO SCH (08:52)
[2022-10-29] MEDS: IBUPROFEN 600 MG TAB PO PRN (10:28)
--- NOTE | 2022-10-29 13:56 | P.PN ---
Subjective Progress Note Date: 10/29/22 patient is a 87-year-old lady with past medical history significant for back pain who presented to the ER for episodes of slurred speech. Patient states that she has been dealing with these episodes of slurred speech since June. Patient states this these episodes are intermittent. Patient also complains of episodes of pressure behind her eyes and her head feeling full associated with neck pains. Denies any weakness of any extremity. Denies any facial droop. No complaint of any passing out. Patient has been seeing therapy for her right hip pain. This morning patient had episode of slurred speech that made her concerned and wanted to come to the ER Initial lab work done in the ER showed WBC 6, hemoglobin 13.8 platelet count 450, sodium 136, potassium 4.9, BUN 25, creatinine 0.76 CT brain done showed no acute intracranial process Chest x-ray done in the ER showed no acute cardiopulmonary process She admitted to medicine service 10/25. Patient seen and examined. Still having episodes of slurred speech. No other sensory or motor deficit 10/26. Patient seen and examined. Still having right hip pain. 10/27. Patient seen and examined. Hip and lumbar spine x-rays reviewed, no evidence of any fractures. MRI brain showed no evidence of intracranial mass, acute/subacute infarct or abnormal enhancement 10/28. Patient seen and examined. Patient had prolonged EEG yesterday which was negative for any seizures. Currently on Keppra per neurology recommendations. Patient had episode this morning of slurred speech, neurology increased the dose to Keppra to 750 milligrams twice daily 10/29. Patient seen and examined. Still complaining of lethargy. Waiting on rehab placement REVIEW OF SYSTEMS: CONSTITUTIONAL: No fever, no malaise,. CARDIOVASCULAR: No chest pain, no palpitations, no syncope. PULMONARY: No shortness of breath, no cough, GASTROINTESTINAL: No diarrhea, no nausea, no vomiting, no abdominal pain. NEUROLOGICAL: No headaches, no weakness, PHYSICAL EXAMINATION: GENERAL: The patient is alert and oriented x3, not in any acute distress. Well developed, well nourished. HEENT: Pupils are round and equally reacting to light. EOMI. No scleral icterus. No conjunctival pallor. Normocephalic, atraumatic. No pharyngeal erythema. No thyromegaly. CARDIOVASCULAR: S1 and S2 present. No murmurs, rubs, or gallops. PULMONARY: Chest is clear to auscultation, no wheezing or crackles. ABDOMEN: Soft, nontender, nondistended, normoactive bowel sounds. No palpable organomegaly. MUSCULOSKELETAL: No joint swelling or deformity. EXTREMITIES: No cyanosis, clubbing, or pedal edema. NEUROLOGICAL: Gross neurological examination did not reveal any focal deficits. SKIN: No rashes. Assessment and plan Episodes of slurred speech Dizziness Right hip pain Monitor vital signs Monitor CBC Monitor CMP Continue telemetry monitoring Carotid Dopplers negative for any hemodynamically significant stenosis EEG negative for any seizure-like activity MRI brain negative for any acute intrarenal process PT and OT recommended rehab Neurology following, started on Keppra because of high suspicion of seizure, continue 750 mg twice daily. neurology recommended Epilepsy monitoring unit (EMU) or prolonged EEG as outpatient to capture those episodes. Orthopedic consulted,x-ray hip and Lumbar spine negative for any fractures Labs and medication were reviewed.. Continue same treatment. Continue with symptomatic treatment. Resume home medication. Monitor labs and vitals. DVT and GI prophylaxis. Further recommendations as per clinical course of the patient Dictation was produced using [employer] dictation software. please excuse any grammatical, word or spelling errors. Objective - Vital Signs Vital signs: Vital Signs Temp 98.2 F 10/29/22 07:22 Pulse 62 10/29/22 08:00 Resp 18 10/29/22 08:00 BP 112/42 10/29/22 07:22 Pulse Ox 99 10/29/22 07:22 FiO2 21 10/28/22 08:54 Intake & Output 10/28/22 10/29/22 10/29/22 18:59 06:59 18:59 Intake Total 240 Balance 240 Intake: Oral 240 Other: Voiding Method Bedside Commode Bedside Commode Bedside Commode # Voids 2 3 1 - Labs CBC & Chem 7: 10/24/22 12:36 10/24/22 12:36
[2022-10-29] MEDS: IBUPROFEN 600 MG TAB PO SCH ×2 (16:02→21:44)
[2022-10-29] MEDS ORDERED: polyethylene glycoL 3350 17 GM POWD.PACK PO SCH (21:00)
[2022-10-30] MEDS: SODIUM CHLORIDE 0.9% 1,000 ML IV SCH (00:34)
[2022-10-30 04:26] VITALS: RESP 15
[2022-10-30] MEDS: IBUPROFEN 600 MG TAB PO SCH (08:16)
[2022-10-30] MEDS: ASPIRIN 325 MG TAB PO SCH (08:16)
[2022-10-30] MEDS: DOCUSATE 100 MG CAP PO SCH (08:16)
[2022-10-30] MEDS: methylPREDNISolone 4 MG TAB TAPER PO SCH ×2 (08:17→08:28)
[2022-10-30 08:37] VITALS: BP 136/61; PULSE 70; TEMP 98.2
--- NOTE | 2022-10-30 10:20 | P.DS ---
Providers Date of admission: 10/27/22 12:52 Expected date of discharge: 10/30/22 Attending physician: Otto Haynes MD Consults: 10/24/22 14:04 Consult Physician Routine Consulting Provider: Roberto Ballard Consult Reason/Comments: tia Do you want consulting provider notified?: Yes 10/25/22 14:00 Consult Physician Routine Consulting Provider: Prasanth Juarez Consult Reason/Comments: fall at home Do you want consulting provider notified?: Yes Primary care physician: [facility] Course: Discharge diagnoses; Episodes of slurred speech Dizziness Right hip pain Hospital course; patient is a 87-year-old lady with past medical history significant for back pain who presented to the ER for episodes of slurred speech. Patient states that she has been dealing with these episodes of slurred speech since June. Patient states this these episodes are intermittent. Patient also complains of episodes of pressure behind her eyes and her head feeling full associated with neck pains. Denies any weakness of any extremity. Denies any facial droop. No complaint of any passing out. Patient has been seeing therapy for her right hip pain. This morning patient had episode of slurred speech that made her concerned and wanted to come to the ER Initial lab work done in the ER showed WBC 6, hemoglobin 13.8 platelet count 450, sodium 136, potassium 4.9, BUN 25, creatinine 0.76 CT brain done showed no acute intracranial process Chest x-ray done in the ER showed no acute cardiopulmonary process She admitted to medicine service 10/25. Patient seen and examined. Still having episodes of slurred speech. No other sensory or motor deficit 10/26. Patient seen and examined. Still having right hip pain. 10/27. Patient seen and examined. Hip and lumbar spine x-rays reviewed, no evidence of any fractures. MRI brain showed no evidence of intracranial mass, acute/subacute infarct or abnormal enhancement 10/28. Patient seen and examined. Patient had prolonged EEG yesterday which was negative for any seizures. Currently on Keppra per neurology recommendations. Patient had episode this morning of slurred speech, neurology increased the dose to Keppra to 750 milligrams twice daily 10/29. Patient seen and examined. Still complaining of lethargy. Waiting on rehab placement 10/30. Patient seen and examined. Discussed with neurology, patient was complaining of some grogginess, they recommended decreasing the dose of Keppra to 500 mg twice a day. Outpatient follow-up with neurology PHYSICAL EXAMINATION: GENERAL: The patient is alert and oriented x3, not in any acute distress. Well developed, well nourished. HEENT: Pupils are round and equally reacting to light. EOMI. No scleral icterus. No conjunctival pallor. Normocephalic, atraumatic. No pharyngeal erythema. No thyromegaly. CARDIOVASCULAR: S1 and S2 present. No murmurs, rubs, or gallops. PULMONARY: Chest is clear to auscultation, no wheezing or crackles. ABDOMEN: Soft, nontender, nondistended, normoactive bowel sounds. No palpable organomegaly. MUSCULOSKELETAL: No joint swelling or deformity. EXTREMITIES: No cyanosis, clubbing, or pedal edema. NEUROLOGICAL: Gross neurological examination did not reveal any focal deficits. SKIN: No rashes. Dictation was produced using [employer] dictation software. please excuse any grammatical, word or spelling errors. Patient Condition at Discharge: Good Plan - Discharge Summary New Discharge Prescriptions: New methylPREDNISolone Dose Pack [Medrol Dose Pack] 4 mg PO DIRECTED #1 packet levETIRAcetam [Keppra] 500 mg PO Q12HR #30 tab Continue Ibuprofen [Motrin] 800 mg PO DAILY Discharge Medication List Ibuprofen [Motrin] 800 mg PO DAILY 10/24/22 [History] methylPREDNISolone Dose Pack [Medrol Dose Pack] 4 mg PO DIRECTED #1 packet 10/28/22 [Rx] levETIRAcetam [Keppra] 500 mg PO Q12HR #30 tab 10/30/22 [Rx] Follow up Appointment(s)/Referral(s): Gwendolyn Byrd [Primary Care Provider] - 1-2 days Prasanth Juarez DO [Doctor of Osteopathic Medicine] - 1 Week Patient Instructions/Handouts: Transient Ischemic Attack (DC) Activity/Diet/Wound Care/Special Instructions: FOLLOW UP DIRECTED, SOONER FOR WORSENING SYMPTOMS, PROBLEMS OR CONCERNS. F/U in office with Dr. Juarez and or Dr. Montiel if continues with hip, leg and back pain Discharge Disposition: TRANSFER TO SNF/ECF
== END 2022-10-30 12:51 | DRG 69 ==
LOC: EC 11:35 → 6NMEDSUR 14:04 → OBSVTOIN 10-27 12:52
PROVIDERS: ADMIT Internal Medicine; ATTEND Internal Medicine
DX: G45.9 Transient cerebral ischemic attack, unspecified (principal); E78.00 Pure hypercholesterolemia, unspecified; G62.9 Polyneuropathy, unspecified; G89.29 Other chronic pain; M16.11 Unilateral primary osteoarthritis, right hip; M43.16 Spondylolisthesis, lumbar region; M51.36 Other intervertebral disc degeneration, lumbar region; N32.81 Overactive bladder; Z96.649 Presence of unspecified artificial hip joint; R47.81 Slurred speech; R56.9 Unspecified convulsions; W19.XXXA Unspecified fall, initial encounter; Y92.009 Unspecified place in unspecified non-institutional (private) residence as the place of occurrence of the external cause; Z79.82 Long term (current) use of aspirin; Z85.828 Personal history of other malignant neoplasm of skin; Z90.710 Acquired absence of both cervix and uterus; Z87.891 Personal history of nicotine dependence
CPT/HCPCS: 36415; 70450; 70553; 71046; 72100; 73502; 80053; 80061; 82550; 85025; 85610; 85730; 93005; 93306; 93880; 94760; 95713; 95819; 96360; 96361; 99285